=== PATIENT | female | born 1930 | race Hispanic/Latino ===

== ENCOUNTER 2018-04-13 21:20 | Emergency (ER) | payer MEDICARE, BC ==
[2018-04-13 21:52] VITALS: TEMP 98.3; O2SAT 95
[2018-04-13] MEDS ORDERED: Bacitracin 500 Units/gm Oint Foilpak UD TOP ONE (22:19)
[2018-04-13] MEDS ORDERED: Epinephrine /Lidocaine HCL 1:100,000/2% 30 ml INJ STA (22:19)
[2018-04-13] MEDS ORDERED: Bacitracin 500 Units/gm Oint Foilpak UD ONE (22:36)
[2018-04-14] MEDS ORDERED: Tdap Vaccine 0.5 ml Vial (10-64 yrs) IM ONE ×2 (00:05→00:09)
--- NOTE | 2018-04-14 00:22 | C.PDOC ---
History Of Present Illness 87 year old female presents to the ED c/o left foot pain and laceration. Patient states that while holding a glass picture from it slipped from her hands and fell onto her left foot which occurred approximately at 15:00. Patient states her foot continued bleeding which concerned her and prompted the visit to the ED. Patient denies numbness, weakness, other injuries. Time Seen by Provider: 04/13/18 22:06 Chief Complaint (Nursing): Abnormal Skin Integrity History Per: Patient History/Exam Limitations: no limitations Onset/Duration Of Symptoms: Hrs Current Symptoms Are (Timing): Still Present Location Of Injury: Left: Leg (foot) Quality Of Symptoms: Painful Recent travel outside of the [place]: No Additional History Per: Patient Past Medical History Reviewed: Historical Data, Nursing Documentation, Vital Signs Vital Signs: Last Vital Signs Temp 98.3 F 04/13/18 21:45 Pulse 89 04/14/18 00:22 Resp 20 04/14/18 00:22 BP 136/80 04/14/18 00:22 Pulse Ox 95 04/14/18 04:17 - Medical History PMH: Anxiety, Atrial Fibrillation, Cardia Arrhythmia, COPD, Depression, HTN, Hypothyroidism Denies: Chronic Kidney Disease Surgical History: Cholecystectomy (1984) - [facility] Procedures CLOSED ENDOSCOPIC BIOPSY OF LARGE INTESTINE (08/22/97) ENDOSCOP DEST OF OTH LESION OR TISU OF LRG INTESTN (08/22/97) ESOPHAGOGASTRODUODENOSCOPY [EGD] W/CLOSED BIOPSY (07/26/98) Family History: States: Unknown Family Hx - Social History Hx Tobacco Use: No Hx Alcohol Use: No Hx Substance Use: No - Immunization History Hx Tetanus Toxoid Vaccination: No Hx Influenza Vaccination: Yes Hx Pneumococcal Vaccination: Yes Review Of Systems Constitutional: Negative for: Fever, Chills Cardiovascular: Negative for: Chest Pain, Palpitations Respiratory: Negative for: Cough, Shortness of Breath Gastrointestinal: Negative for: Nausea, Vomiting, Abdominal Pain Musculoskeletal: Positive for: Foot Pain Skin: Positive for: Other (laceration) Neurological: Negative for: Weakness, Numbness Physical Exam - Physical Exam Appears: Non-toxic, No Acute Distress Skin: Normal Color, Warm, Dry, Other (2.5 cm C shaped laceration to dorsal aspect of left foot) Head: Atraumatic, Normacephalic Eye(s): bilateral: Normal Inspection Oral Mucosa: Moist Neck: Normal ROM, Supple Chest: Symmetrical Cardiovascular: Rhythm Regular Respiratory: Normal Breath Sounds, No Rales, No Rhonchi, No Wheezing Gastrointestinal/Abdominal: Soft, No Tenderness, No Guarding, No Rebound Extremity: Normal ROM, No Tenderness, Capillary Refill (< 2 seconds), No Swelling Pulses: Left Dorsalis Pedis: Normal, Right Dorsalis Pedis: Normal Neurological/Psych: Oriented x3, Normal Speech, Normal Motor, Normal Sensation Gait: Steady ED Course And Treatment O2 Sat by Pulse Oximetry: 95 (ON RA) Pulse Ox Interpretation: Normal Procedure: Wound Repair - Time Performed Time Performed: 00:00 - Time Out Time Out: Side verified, Site verified - Procedure Procedure: Wound Repair: Dorsal left foot - Consent Obtained Consent obtained: Verbal - Performed by Performed by: Mid-level Provider (Patt) - Indications Indication(s):: Laceration - Anesthetic Technique Anesthetic Technique: Local Local/Regional Anesthetic:: Lidocaine 1% w/epi - Debris Debris:: None - Complexity Complexity:: Simple (one layer) - Wound repair method Sutures:: # (Five), Size (4-0), Type (Nylon), Technique (interrupted) - Patient tolerated procedure Patient Tolerated Procedure:: Well Medical Decision Making Medical Decision Making: Plan: * Lac repair * Tetanus immunization * Left foot X-Ray Xrays are negative for fracture and no foreign body seen. Disposition - Disposition Referrals: [facility] [Outside] Disposition: HOME/ ROUTINE Disposition Time: 00:22 Condition: GOOD Additional Instructions: Follow up with the medical doctor within 1-2 days. Return if worsened, Prescriptions: Bacitracin Ointment [Bacitracin] 30 gm TOP BID #1 tube Instructions: Laceration Repair Forms: 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 - Scribe Statement The provider has reviewed the documentation as recorded by the Scribe Deni Mendoza All medical record entries made by the Scribe were at my direction and personally dictated by me. I have reviewed the chart and agree that the record accurately reflects my personal performance of the history, physical exam, medical decision making, and the department course for this patient. I have also personally directed, reviewed, and agree with the discharge instructions and disposition.
[2018-04-14 00:25] VITALS: BP 136/80; PULSE 89; RESP 20
--- NOTE | 2018-04-14 08:26 | RAD ---
Date of service: 04/13/2018 PROCEDURE: Left Foot Radiographs. HISTORY: foot injury, lac to dorsal mid foot, r/o FB COMPARISON: None. FINDINGS: BONES: No osseous destruction. Or periosteal reaction. . No fracture. Prominent inferior calcaneal spur JOINTS: 1st metatarsal joint space narrowing -osteoarthrosis SOFT TISSUES: There is compatible with a laceration. Overlying bandaging material present. No suspect radiopaque foreign body separate from the bandaging material appreciated. OTHER FINDINGS: None. IMPRESSION: No fracture periosteal reaction or cortical interruption. Soft tissue changes compatible with laceration overlying bandaging border the 5th metatarsal phalangeal joint. Arthrosis
== END 2018-04-14 00:30 | disposition home or self-care (01) ==
LOC: C.ER 21:20
DX: S91.312A Laceration without foreign body, left foot, initial encounter (principal); W25.XXXA Contact with sharp glass, initial encounter; Y92.89 Other specified places as the place of occurrence of the external cause; Z23 Encounter for immunization

== ENCOUNTER 2018-04-22 19:41 | Emergency (ER) | payer MEDICARE, BC ==
[2018-04-22 20:10] VITALS: BP 123/69; PULSE 84; RESP 18; TEMP 98.1; O2SAT 95
[2018-04-22] MEDS ORDERED: Tmp-Smz 800 mg-160 mg DS Tab PO STA (20:27)
[2018-04-22] MEDS ORDERED: Bacitracin 500 Units/gm Oint Foilpak UD TOP ONE (20:28)
[2018-04-22] MEDS ORDERED: Tmp-Smz 800 mg-160 mg DS Tab ONE (20:39)
[2018-04-22] MEDS ORDERED: Bacitracin 500 Units/gm Oint Foilpak UD ONE (20:39)
--- NOTE | 2018-04-22 20:40 | C.PDOC ---
History Of Present Illness 23 year old male patient presents to the ER with request for wound check and suture removal. Patient reports suture was placed 10 days ago on left dorsal foot and the area has become swollen and red. Patient denies fever, drainage, new trauma, numbness and weakness. Time Seen by Provider: 04/22/18 20:08 Chief Complaint (Nursing): Suture/Staple Removal History Per: Patient History/Exam Limitations: no limitations Onset/Duration Of Symptoms: Days Ago (x10) Location Of Injury: Left: Foot (dorsal) Quality Of Symptoms: Swollen, Other (erythema) Past Medical History Reviewed: Historical Data, Nursing Documentation, Vital Signs Vital Signs: Last Vital Signs Temp 98.1 F 04/22/18 20:08 Pulse 84 04/22/18 20:08 Resp 18 04/22/18 21:01 BP 123/69 04/22/18 20:08 Pulse Ox 95 04/22/18 21:20 - Medical History PMH: Anxiety, Atrial Fibrillation, Cardia Arrhythmia, COPD, Depression, HTN, Hypothyroidism Surgical History: Cholecystectomy (1984) - [facility] Procedures CLOSED ENDOSCOPIC BIOPSY OF LARGE INTESTINE (08/22/97) ENDOSCOP DEST OF OTH LESION OR TISU OF LRG INTESTN (08/22/97) ESOPHAGOGASTRODUODENOSCOPY [EGD] W/CLOSED BIOPSY (07/26/98) Family History: States: Unknown Family Hx - Social History Hx Tobacco Use: No Hx Alcohol Use: No Hx Substance Use: No - Immunization History Hx Tetanus Toxoid Vaccination: No Hx Influenza Vaccination: Yes Hx Pneumococcal Vaccination: Yes Review Of Systems Except As Marked, All Systems Reviewed And Found Negative. Constitutional: Negative for: Fever, Other (drainage; new trauma) Musculoskeletal: Positive for: Foot Pain (swollen and erythema of left dorsal aspect of foot) Neurological: Negative for: Weakness, Numbness Physical Exam - Physical Exam Appears: Well, Non-toxic, No Acute Distress Skin: Warm, Dry Head: Atraumatic, Normacephalic Eye(s): bilateral: Normal Inspection Oral Mucosa: Moist Neck: Normal ROM Extremity: Normal ROM, No Tenderness, No Pedal Edema, Capillary Refill (<2 sec) , No Deformity, Swelling (swelling and surrounding erythema on dorsal aspect of left foot) Pulses: Left Dorsalis Pedis: Normal, Right Dorsalis Pedis: Normal Neurological/Psych: Oriented x3, Normal Speech, Normal Motor, Normal Sensation, Normal Reflexes Gait: Steady ED Course And Treatment O2 Sat by Pulse Oximetry: 95 (RA) Pulse Ox Interpretation: Normal Progress Note: Impression: suture removal and wound check on dorsal aspect of left foot. Plans: -- Bacitracin. -- Bactrim. -- Keflex. Reassess: Dorsal aspect of left foot is poorly healed. Patient is tolerating PO; resting comfortably. Patient is instructed to f/u with PCP in 1-2 days and to come back if condition worsen. Medical Decision Making Medical Decision Making: Patient's skin is very thin and not healing well. Sutures were removed by me. Sterile dressing applied. The wound was traced with a skin marker to check for worsening Disposition - Disposition Referrals: Shantell Cancino MD [Staff Provider] - Disposition: HOME/ ROUTINE Disposition Time: 20:36 Condition: STABLE Additional Instructions: Follow up with the medical doctor within 1-2 days for wound check without fail. Return to the ED as soon as possible if worsened (increased redness, pain, or worsened swelling). 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 - Scribe Statement The provider has reviewed the documentation as recorded by the Mehrdadibsolo Philippe Do All medical record entries made by the Scribe were at my direction and personally dictated by me. I have reviewed the chart and agree that the record accurately reflects my personal performance of the history, physical exam, medical decision making, and the department course for this patient. I have also personally directed, reviewed, and agree with the discharge instructions and disposition. Suture Removal/Wound Check - Historian Historian: Patient - Chief Complaints Chief complaint: Suture removal, Wound check - Treated at Treated at:: Other ED ([facility] ED) Antibiotics prescribed:: Yes (Bactrim) - Symptoms since last ED visit Symptoms since last ED visit:: Redness Other:: swollen - Location Right/Left:: Foot (dorsal aspect of left foot)
== END 2018-04-22 21:02 | disposition home or self-care (01) ==
LOC: C.ER 19:41
DX: Z48.02 Encounter for removal of sutures (principal); L03.116 Cellulitis of left lower limb

== ENCOUNTER 2018-11-11 15:06 | Inpatient (IN) | payer MEDICARE, BC ==
[2018-11-11] MEDS ORDERED: Vancomycin 1 GM 1 GM/250 ML BAG IVPB STA (15:35)
[2018-11-11] MEDS ORDERED: Piperacillin/Tazobact 3.375 gm 100 ML IV STA (15:35)
[2018-11-11] MEDS ORDERED: Vancomycin 1 GM 1 GM/250 ML BAG IVPB ONE (15:55)
[2018-11-11] MEDS ORDERED: Piperacillin/Tazobact 3.375 gm 100 ML IVPB ONE (15:55)
--- NOTE | 2018-11-11 16:03 | C.PDOC ---
History Of Present Illness 87 y/o female pt presents to the ER c/o right lower leg wound and swelling. Pt reports she accidentally kicked a metal box x1 week ago. Pt washed wound with soap and water but site became worse. Pt lives alone and is present with guru valderrama. Pt has no other complaint or other associated sx at this time. Time Seen by Provider: 11/11/18 15:21 Chief Complaint (Nursing): Shortness Of Breath History Per: Patient History/Exam Limitations: no limitations Onset/Duration Of Symptoms: Days Current Symptoms Are (Timing): Still Present Past Medical History Reviewed: Historical Data, Nursing Documentation, Vital Signs Vital Signs: Last Vital Signs Temp 97.7 F 11/11/18 15:12 Pulse 77 11/11/18 15:12 Resp 20 11/11/18 15:12 BP 155/83 H 11/11/18 15:12 Pulse Ox 92 L 11/11/18 15:12 - Medical History PMH: Anxiety, Atrial Fibrillation, Cardia Arrhythmia, COPD, Depression, HTN, Hypothyroidism Surgical History: Cholecystectomy (1984) - [facility] Procedures CLOSED ENDOSCOPIC BIOPSY OF LARGE INTESTINE (08/22/97) ENDOSCOP DEST OF OTH LESION OR TISU OF LRG INTESTN (08/22/97) ESOPHAGOGASTRODUODENOSCOPY [EGD] W/CLOSED BIOPSY (07/26/98) Family History: States: Unknown Family Hx - Social History Hx Tobacco Use: No Hx Alcohol Use: No Hx Substance Use: No - Immunization History Hx Tetanus Toxoid Vaccination: No Hx Influenza Vaccination: Yes Hx Pneumococcal Vaccination: Yes Review Of Systems Except As Marked, All Systems Reviewed And Found Negative. Musculoskeletal: Positive for: Leg Pain (right lower ) Skin: Positive for: Other (wound on right lower leg ) Physical Exam - Physical Exam Appears: Non-toxic, No Acute Distress, Other (elderly ) Skin: Warm, Dry, No Rash Head: Atraumatic, Normacephalic Eye(s): bilateral: Normal Inspection Oral Mucosa: Moist Throat: Normal Chest: Symmetrical Cardiovascular: Rhythm Irregular Respiratory: Other (distant but clear ) Gastrointestinal/Abdominal: Soft, No Tenderness Extremity: Normal ROM (x4), Pedal Edema (R>L), No Calf Tenderness, No Deformity, Other (2 skin tear in anterior mid-tibia; approximately 2 cm each; 10x20 surrounding area erythema consistent with cellulitis; Right leg: negative homans sign. ) Pulses: Left Dorsalis Pedis: Normal Neurological/Psych: Oriented x3, Normal Speech, Normal Cognition, Normal Motor, Normal Sensation ED Course And Treatment - Laboratory Results Result Diagrams: 11/11/18 16:00 11/11/18 16:00 Lab Interpretation: Normal (d-dimer neg, trop neg,) ECG: Interpreted By Me ECG Rhythm: Atrial Fibrillation ECG Interpretation: Normal Rate From EC O2 Sat by Pulse Oximetry: 92 (RA) Pulse Ox Interpretation: Normal - Radiology CXR: Interpreted by Me CXR Interpretation: Yes: No Acute Disease. No: Infiltrates - CT Scan/US U/S legs Other Rad Studies (CT/US): Radiology Report Reviewed (no b/l leg DVT's) Progress Note: vanco, zosyn, Xanax Reevaluation Time: 17:52 Reassessment Condition: Improved - Physician Consult Information Outcome Of Conversation: 1750: d/w Hospitalist- Dr. Remedios Calhoun, ok to adm to Dr. Belle covering pt's for Dr. Cancino Medical Decision Making Medical Decision Making: plans: -- chem labs -- blood work -- EKG -- CXR -- IV fluids -- vancomycin -- xanax R lower leg cellulitis skin tear from 1 week ago zosyn/Vanco COPD Stable normal regimen consult Dr. Ortiz PRN Anxiety: Xanax [place] deconditioned lives alone [facility] after hospital care consider NH placement for safe dispo Disposition Doctor Will See Patient In The: Hospital Counseled Patient/Family Regarding: Studies Performed, Diagnosis - Disposition Disposition: HOSPITALIZED Disposition Time: 17:54 Condition: GOOD Forms: [employer] (Icelandic) - Clinical Impression Clinical Impression: Cellulitis of leg, right - Scribe Statement The provider has reviewed the documentation as recorded by the Diana Philippe Do Provider Attestation: All medical record entries made by the Diana were at my direction and personally dictated by me. I have reviewed the chart and agree that the record accurately reflects my personal performance of the history, physical exam, medical decision making, and the department course for this patient. I have also personally directed, reviewed, and agree with the discharge instructions and disposition.
[2018-11-11 16:11] LABS: BASO # 0.1 K/uL (0.0-0.2); BASO % 1.4 % (0.0-2.0); EOS # 0.2 K/uL (0.0-0.7); EOS % 3.4 % (0.0-4.0); LYMPH # 1.8 K/uL (1.0-4.3); LYMPH % 27.6 % (20.0-40.0); MEAN CELL VOLUME 86.2 fL (81.0-99.0); MEAN CORPUSCULAR HEMOGLOBIN 28.1 pg (27.0-31.0); MEAN CORPUSCULAR HGB CONC 32.6 g/dL (33.0-37.0); MEAN PLATELET VOLUME 8.7 fL (7.2-11.7); MONO # 0.8 K/uL (0.0-0.8); MONO % 12.9 % (0.0-10.0); NEUT # 3.5 K/uL (1.8-7.0); NEUT % 54.7 % (50.0-75.0); RBC 4.64 Mil/uL (3.80-5.20); RED CELL DISTRIBUTION WIDTH 14.4 % (11.5-14.5); WHITE BLOOD COUNT 6.4 K/uL (4.8-10.8)
--- NOTE | 2018-11-11 16:11 | RAD ---
Date of service: 11/11/2018 PROCEDURE: CHEST RADIOGRAPH, 1 VIEW HISTORY: SOB COMPARISON: CT chest without contrast from 02/02/2017. FINDINGS: LUNGS: The lungs are well inflated. There is mild pulmonary venous congestion. PLEURA: No pneumothorax or pleural effusion. CARDIOVASCULAR: Persistent cardiomegaly and prominent central vasculature. There are aortic atherosclerotic calcifications present. OSSEOUS STRUCTURES: Within normal limits for the patient's age. VISUALIZED UPPER ABDOMEN: Normal. OTHER FINDINGS: None. IMPRESSION: No active pulmonary disease. Persistent cardiomegaly and mild pulmonary venous congestion.
[2018-11-11 16:16] LABS: ALB/GLOB RATIO 1.3 (1.0-2.1); ALBUMIN 4.1 g/dL (3.5-5.0); ALT/SGPT 27 U/L (9-52); AST/SGOT 32 U/L (14-36); BLOOD UREA NITROGEN 26 mg/dL (7-17); CALCIUM 9.2 mg/dl (8.6-10.4); GFR NON-AFRICAN AMERICAN > 60
[2018-11-11 16:21] LABS: INR 1.3; PARTIAL THROMBOPLASTIN TIME 72 SECONDS (21-34)
[2018-11-11 16:25] LABS: D DIMER < 200 ng/mlDDU (0-243)
[2018-11-11 16:29] LABS: B-TYPE NATRIURETIC PEPTIDE 1880 pg/mL (0-900)
--- NOTE | 2018-11-11 17:12 | VASCLAB ---
Date of service: 11/11/2018 PROCEDURE: Lower Extremity Venous Duplex Exam. HISTORY: ? R lower leg DVT PRIORS: None. TECHNIQUE: Bilateral common femoral, femoral, popliteal and posterior tibial, peroneal and great saphenous veins were evaluated. Flow was assessed with color Doppler, compressibility, assessment of phasic flow and augmentation response. Report prepared by Kenneth Self, BS, RVT FINDINGS: RIGHT: 1. Common Femoral Vein: 1.1. Compressibility - Fully compressible: Thrombus - None : Flow - Phasic: Augmentation -Normal: Reflux - None. 2. Femoral Vein: 2.1. Compressibility - Fully compressible: Thrombus - None : Flow - Phasic: Augmentation -Normal: Reflux - None. 3. Popliteal Vein: 3.1. Compressibility - Fully compressible: Thrombus - None : Flow - Phasic: Augmentation -Normal: Reflux - None. 4. Posterior Tibial Vein: 4.1. Compressibility - Fully compressible: Thrombus - None: Flow - Phasic: Augmentation -Normal: Reflux - None. 5. Peroneal Vein: 5.1. Compressibility - Fully compressible: Thrombus - None: Flow - Phasic: Augmentation -Normal: Reflux - None. 6. Great Saphenous Vein: 6.1. Compressibility - Fully compressible: Thrombus - None: Flow - Phasic: Augmentation - Normal: Reflux - None. LEFT: 1. Common Femoral Vein: 1.1. Compressibility - Fully compressible: Thrombus - None: Flow - Phasic: Augmentation -Normal: Reflux - None. 2. Femoral Vein: 2.1. Compressibility - Fully compressible: Thrombus - None: Flow - Phasic: Augmentation -Normal: Reflux - None. 3. Popliteal Vein: 3.1. Compressibility - Fully compressible: Thrombus - None : Flow - Phasic: Augmentation -Normal: Reflux - None. 4. Posterior Tibial Vein: 4.1. Compressibility - Fully compressible: Thrombus - None: Flow - Phasic: Augmentation -Normal: Reflux - None. 5. Peroneal Vein: 5.1. Compressibility - Fully compressible: Thrombus - None: Flow - Phasic: Augmentation -Normal: Reflux - None. 6. Great Saphenous Vein: 6.1. Compressibility - Fully compressible: Thrombus - None: Flow - Phasic: Augmentation - Normal: Reflux - None. OTHER FINDINGS: Right: None significant. Left: None significant. IMPRESSION: Right: No evidence of deep or superficial vein thrombosis of the right lower extremity. Normal valve function noted of the right side. Left: No evidence of deep or superficial vein thrombosis of the left lower extremity. Normal valve function noted of the left side.
[2018-11-11 17:15] LABS: SQUAMOUS EPITHIAL 1 /hpf (0-5); URINE BACTERIA RARE (<OCC); URINE BILIRUBIN NEGATIVE (NEGATIVE); URINE BLOOD NEGATIVE (NEGATIVE); URINE COLOR Yellow (YELLOW); URINE GLUCOSE (UA) NORMAL (Normal); URINE LEUKOCYTE ESTERASE 2+ Leu/uL (Negative); URINE PROTEIN NEGATIVE (NEGATIVE); URINE UROBILINOGEN NORMAL mg/dL (0.2-1.0)
[2018-11-11 17:16] LABS: URINE CLARITY SL HAZY (Clear)
[2018-11-11 18:08] VITALS: RESP 20
--- NOTE | 2018-11-11 19:28 | CP.PCM.HP ---
<ElianaCristopher - Last Filed: 11/11/18 22:20> History of Present Illness - History of Present Illness History of Present Illness: PGY-1 History and Physical [address] Belle Patient is an 87 year old female with past medical history of Atrial fibrillation (on Pradaxa), HTN, COPD, gastritis, anxiety/depression presenting to ED for RLE wound/cellulitis after hitting the anterior portion of her lower R leg on the edge of a metallic filing cabinet 1 week ago. Patient denies any falls or head trauma. She tried cleaning out the wound with soap and water at home, put some bacitracin ointment on it but says it worsened over the course of 1 week. She denies any fevers/chills, headaches, dizziness, chest pain, palpitations, sob, cough, abdominal pain, n/v/d/c, dysuria. 12 pt ROS reviewed and otherwise negative. Of note, patient was on home O2 but says it was taken away last week b/c of insurance. PMHx: A-fib, HTN, COPD, gastritis, anxiety, depression PSHx: cholecystectomy (1984) Allergies: NKDA Home Meds: as per chart Family Hx: unknown Social Hx: denies tobacco, alcohol, or illicit drug use. Lives at home alone. Was brought in by daughter to ED. Used home O2 in past but recently taken away d/t insurance, per pt. PMD: Dr. Medina Present on Admission - Present on Admission Any Indicators Present on Admission: No Review of Systems - Review of Systems All systems: reviewed and no additional remarkable complaints except Review of Systems: as per HPI Past Patient History - Past Medical History & Family History Past Medical History?: Yes - Past Social History Smoking Status: Former Smoker - CARDIAC Hx Atrial Fibrillation: Yes Hx Cardia Arrhythmia: Yes Hx Hypertension: Yes - PULMONARY Hx Chronic Obstructive Pulmonary Disease (COPD): Yes - NEUROLOGICAL Hx Neurological Disorder: No - HEENT Hx HEENT Problems: No - RENAL Hx Chronic Kidney Disease: No - ENDOCRINE/METABOLIC Hx Hypothyroidism: Yes - HEMATOLOGICAL/ONCOLOGICAL Hx Blood Disorders: No - INTEGUMENTARY Hx Dermatological Problems: No - MUSCULOSKELETAL/RHEUMATOLOGICAL Hx Musculoskeletal Disorders: No Hx Falls: No - GASTROINTESTINAL Hx Gastrointestinal Disorders: Yes Hx Gastroesophageal Reflux: Yes - GENITOURINARY/GYNECOLOGICAL Hx Genitourinary Disorders: Yes Hx Urinary Tract Infection: Yes - PSYCHIATRIC Hx Anxiety: Yes Hx Depression: Yes Hx Substance Use: No - SURGICAL HISTORY Hx Cholecystectomy: Yes (1984) - ANESTHESIA Hx Anesthesia: Yes Hx Anesthesia Reactions: No Hx Malignant Hyperthermia: No Meds Allergies/Adverse Reactions: Allergies Allergy/AdvReac Type Severity Reaction Status Date / Time No Known Allergies Allergy Verified 11/11/18 15:17 Physical Exam - Constitutional Appears: Non-toxic, No Acute Distress - Head Exam Head Exam: ATRAUMATIC, NORMAL INSPECTION, NORMOCEPHALIC - Eye Exam Eye Exam: EOMI, Normal appearance Pupil Exam: NORMAL ACCOMODATION - ENT Exam ENT Exam: Mucous Membranes Moist, Normal Exam - Neck Exam Neck exam: Positive for: Full Rom, Normal Inspection. Negative for: Tenderness - Respiratory Exam Respiratory Exam: Clear to Auscultation Bilateral, NORMAL BREATHING PATTERN. absent: Accessory Muscle Use, Rales, Rhonchi, Wheezes, Respiratory Distress, Stridor - Cardiovascular Exam Cardiovascular Exam: Irregular Rhythm, +S1, +S2 - GI/Abdominal Exam GI & Abdominal Exam: Normal Bowel Sounds, Soft. absent: Distended, Firm, Guarding, Rebound, Rigid, Tenderness - Extremities Exam Extremities exam: Positive for: joint swelling (R), normal capillary refill, normal inspection, pedal edema (R>L), pedal pulses present. Negative for: calf tenderness Additional comments: b/l LE distal pulses intact, normal coloration no sensory or motor deficits to LE noted - Neurological Exam Neurological exam: Alert, CN II-XII Intact, Oriented x3 - Psychiatric Exam Psychiatric exam: Normal Affect, Normal Mood - Skin Skin Exam: Dry, Warm Additional comments: 2 skin tears 1-2 cm in size with overlying necrosis to R anterior mid-tibia. 10x20 demarcated surrounding warmth, erythema, TTP. Results - Vital Signs Recent Vital Signs: Last Vital Signs Temp 97.7 F 11/11/18 15:12 Pulse 71 11/11/18 18:08 Resp 20 11/11/18 18:08 BP 127/89 11/11/18 18:08 Pulse Ox 96 11/11/18 18:08 - Labs Result Diagrams: 11/11/18 16:00 11/11/18 16:00 Labs: Laboratory Results - last 24 hr 11/11/18 11/11/18 11/11/18 16:00 16:00 16:00 WBC 6.4 RBC 4.64 Hgb 13.0 Hct 40.0 MCV 86.2 MCH 28.1 MCHC 32.6 L RDW 14.4 Plt Count 194 MPV 8.7 Neut % (Auto) 54.7 Lymph % (Auto) 27.6 Finney % (Auto) 12.9 H Eos % (Auto) 3.4 Baso % (Auto) 1.4 Neut # (Auto) 3.5 Lymph # (Auto) 1.8 Finney # (Auto) 0.8 Eos # (Auto) 0.2 Baso # (Auto) 0.1 PT 14.0 H INR 1.3 APTT 72 H D-Dimer, Quantitative < 200 Sodium 136 Potassium 4.7 Chloride 100 Carbon Dioxide 28 Anion Gap 13 BUN 26 H Creatinine 0.8 Est GFR ( Amer) > 60 Est GFR (Non-Af Amer) > 60 Random Glucose 91 Calcium 9.2 Total Bilirubin 0.6 AST 32 ALT 27 Alkaline Phosphatase 80 Troponin I < 0.0120 NT-Pro-B Natriuret Pep 1880 H Total Protein 7.1 Albumin 4.1 Globulin 3.0 Albumin/Globulin Ratio 1.3 Urine Color Urine Clarity Urine pH Ur Specific [place] Urine Protein Urine Glucose (UA) Urine Ketones Urine Blood Urine Nitrate Urine Bilirubin Urine Urobilinogen Ur Leukocyte Esterase Urine WBC (Auto) Urine RBC (Auto) Ur Squamous Epith Cells Urine Bacteria 11/11/18 17:00 WBC RBC Hgb Hct MCV MCH MCHC RDW Plt Count MPV Neut % (Auto) Lymph % (Auto) [place] % (Auto) Eos % (Auto) Baso % (Auto) Neut # (Auto) Lymph # (Auto) [place] # (Auto) Eos # (Auto) Baso # (Auto) PT INR APTT D-Dimer, Quantitative Sodium Potassium Chloride Carbon Dioxide Anion Gap BUN Creatinine Est GFR ( Amer) Est GFR (Non-Af Amer) Random Glucose Calcium Total Bilirubin AST ALT Alkaline Phosphatase Troponin I NT-Pro-B Natriuret Pep Total Protein Albumin Globulin Albumin/Globulin Ratio Urine Color Yellow Urine Clarity Sl hazy Urine pH 5.0 Ur Specific [place] 1.014 Urine Protein Negative Urine Glucose (UA) Normal Urine Ketones Negative Urine Blood Negative Urine Nitrate Negative Urine Bilirubin Negative Urine Urobilinogen Normal Ur Leukocyte Esterase 2+ H Urine WBC (Auto) 18 H Urine RBC (Auto) 2 Ur Squamous Epith Cells 1 Urine Bacteria Rare Assessment & Plan - Assessment and Plan (Free Text) Assessment: 87 year old F with pmhx of afib (on pradaxa), HTN, COPD, anxiety, depression presenting with RLE wound, likely cellulitis, 2/2 trauma 1 week ago. Plan: RLE swelling/inflammation 2/2 hematoma vs cellulitis -s/p vanc/zosyn x 1 in ED -patient is afebrile, no leukocytosis -add rocephin/doxycycline -f/u Blood, urine cultures -LE Dopplers negative for DVT -D dimer negative -CXR: no acute findings -f/u tib/fib XR -f/u CT RLE w/o contrast to visualize any fluid collection -f/u repeat ECHO (last echo 2015, normal EF at that time) Atrial fibrillation -EKG: a fib, HR 66 bpm -c/w home pradaxa 75 mg PO BID Hx of HTN -currently normotensive, continue to monitor -c/w home losartan 100 mg PO daily Hx of hypothyroidism -restart home synthroid 25 mcg po daily Anxiety, Depression -c/w home xanax 0.25 mg PO BID prn PPx, Diet, Disposition -DVT ppx: home pradaxa -GI ppx: protonix 40 mg IV daily -Diet: HHD -PT/OT on board -Dispo: will need support set up at home, possible home O2. F/U case mgmt for safe discharge. Case discussed with Dr. Yoshi Monroy DO, PGY-1 <Caleb Belle P - Last Filed: 11/12/18 07:03> Results - Vital Signs Recent Vital Signs: Last Vital Signs Temp 98.2 F 11/12/18 00:00 Pulse 60 11/12/18 00:00 Resp 20 11/12/18 00:00 BP 149/73 11/12/18 00:00 Pulse Ox 96 11/12/18 00:00 - Labs Result Diagrams: 11/11/18 16:00 11/11/18 16:00 Labs: Laboratory Results - last 24 hr 11/11/18 11/11/18 11/11/18 16:00 16:00 16:00 WBC 6.4 RBC 4.64 Hgb 13.0 Hct 40.0 MCV 86.2 MCH 28.1 MCHC 32.6 L RDW 14.4 Plt Count 194 MPV 8.7 Neut % (Auto) 54.7 Lymph % (Auto) 27.6 [place] % (Auto) 12.9 H Eos % (Auto) 3.4 Baso % (Auto) 1.4 Neut # (Auto) 3.5 Lymph # (Auto) 1.8 [place] # (Auto) 0.8 Eos # (Auto) 0.2 Baso # (Auto) 0.1 PT 14.0 H INR 1.3 APTT 72 H D-Dimer, Quantitative < 200 Sodium 136 Potassium 4.7 Chloride 100 Carbon Dioxide 28 Anion Gap 13 BUN 26 H Creatinine 0.8 Est GFR ( Amer) > 60 Est GFR (Non-Af Amer) > 60 POC Glucose (mg/dL) Random Glucose 91 Calcium 9.2 Total Bilirubin 0.6 AST 32 ALT 27 Alkaline Phosphatase 80 Troponin I < 0.0120 NT-Pro-B Natriuret Pep 1880 H Total Protein 7.1 Albumin 4.1 Globulin 3.0 Albumin/Globulin Ratio 1.3 Urine Color Urine Clarity Urine pH Ur Specific [place] Urine Protein Urine Glucose (UA) Urine Ketones Urine Blood Urine Nitrate Urine Bilirubin Urine Urobilinogen Ur Leukocyte Esterase Urine WBC (Auto) Urine RBC (Auto) Ur Squamous Epith Cells Urine Bacteria 11/11/18 11/12/18 17:00 02:08 WBC RBC Hgb Hct MCV MCH MCHC RDW Plt Count MPV Neut % (Auto) Lymph % (Auto) [place] % (Auto) Eos % (Auto) Baso % (Auto) Neut # (Auto) Lymph # (Auto) [place] # (Auto) Eos # (Auto) Baso # (Auto) PT INR APTT D-Dimer, Quantitative Sodium Potassium Chloride Carbon Dioxide Anion Gap BUN Creatinine Est GFR ( Amer) Est GFR (Non-Af Amer) POC Glucose (mg/dL) 87 Random Glucose Calcium Total Bilirubin AST ALT Alkaline Phosphatase Troponin I NT-Pro-B Natriuret Pep Total Protein Albumin Globulin Albumin/Globulin Ratio Urine Color Yellow Urine Clarity Sl hazy Urine pH 5.0 Ur Specific [place] 1.014 Urine Protein Negative Urine Glucose (UA) Normal Urine Ketones Negative Urine Blood Negative Urine Nitrate Negative Urine Bilirubin Negative Urine Urobilinogen Normal Ur Leukocyte Esterase 2+ H Urine WBC (Auto) 18 H Urine RBC (Auto) 2 Ur Squamous Epith Cells 1 Urine Bacteria Rare Attending/Attestation - Attestation I have personally seen and examined this patient.: Yes I have fully participated in the care of the patient.: Yes I have reviewed all pertinent clinical information: Yes Notes (Text): 11/12/18 06:59 Cellulitis vs hematoma in the RLL some fluctuation felt Chronic SOB had home o2 uptil wk ago, patient can't use sleep apnea mask and may benefit with night time O2 will need home help, due to deconditioning, chronic sob, sleep apnea, patient is otherwise alert and oriented. Plan rocephin and doxycycline ct of the leg echo Continue pradaxa for afib, also will provide dvt protection gi prophylaxis see orders for detail.
[2018-11-11] MEDS ORDERED: Piperacill/Tazo 3.375gm in Dex 3.375 GM/50 ML BAG IVPB SCH (23:00)
[2018-11-12] MEDS: Levothyroxine 25 MCG TAB PO SCH (05:44)
[2018-11-12 07:07] LABS: BASO # 0.1 K/uL (0.0-0.2); BASO % 1.5 % (0.0-2.0); EOS # 0.3 K/uL (0.0-0.7); EOS % 6.1 % (0.0-4.0); HEMOGLOBIN 12.2 g/dL (11.0-16.0); LYMPH # 1.3 K/uL (1.0-4.3); LYMPH % 27.3 % (20.0-40.0); MEAN CORPUSCULAR HGB CONC 32.1 g/dL (33.0-37.0); MEAN PLATELET VOLUME 8.8 fL (7.2-11.7); MONO # 0.6 K/uL (0.0-0.8); MONO % 13.3 % (0.0-10.0); NEUT # 2.5 K/uL (1.8-7.0); NEUT % 51.8 % (50.0-75.0); RBC 4.36 Mil/uL (3.80-5.20); RED CELL DISTRIBUTION WIDTH 14.6 % (11.5-14.5); WHITE BLOOD COUNT 4.7 K/uL (4.8-10.8)
[2018-11-12 07:09] LABS: ALB/GLOB RATIO 1.3 (1.0-2.1); ALBUMIN 3.6 g/dL (3.5-5.0); ALT/SGPT 18 U/L (9-52); AST/SGOT 29 U/L (14-36); BLOOD UREA NITROGEN 22 mg/dL (7-17); CALCIUM 8.7 mg/dl (8.6-10.4); GFR NON-AFRICAN AMERICAN 59
--- NOTE | 2018-11-12 09:03 | CP.PCM.PN ---
<Isela Roland - Last Filed: 11/12/18 14:40> Subjective - Date & Time of Evaluation Date of Evaluation: 11/12/18 Time of Evaluation: 09:03 - Subjective Subjective: Progress Note for Hospitalist service Patient seen and examined at bedside. She states she has a history of COPD, and had home oxygen at home until about a week ago. She continues to feel short of breath with heaviness in her chest. She denies fevers, chills, headache, dizziness, palpitations, abdominal pain, nausea, vomiting, diarrhea. She states she injured her right leg against a medical object a week ago. She admits to some difficulty doing her laundry and grocery shopping. Objective - Vital Signs/Intake and Output Vital Signs (last 24 hours): Temp Pulse Resp BP Pulse Ox 97.9 F 76 20 143/72 95 11/12/18 07:56 11/12/18 07:56 11/12/18 07:56 11/12/18 07:56 11/12/18 07:56 - Medications Medications: Current Medications Acetaminophen (Tylenol 325mg Tab) 975 mg PO Q6 PRN PRN Reason: Fever >100.4 F Alprazolam (Xanax) 0.25 mg PO BID PRN PRN Reason: Anxiety Stop: 11/18/18 19:30 Dabigatran (Pradaxa) 75 mg PO BID [facility] Last Admin: 11/11/18 19:50 Dose: 75 mg Doxycycline Hyclate (Doryx) 100 mg PO Q12H [facility]; Protocol Last Admin: 11/11/18 22:30 Dose: 100 mg Ceftriaxone Sodium 1 gm/ (Sodium Chloride) 100 mls @ 100 mls/hr IVPB DAILY [facility]; Protocol Lactobacillus Acidophilus (Lactobacillus) 1 cap PO BID [facility] Levothyroxine Sodium (Synthroid) 25 mcg PO DAILY@0630 [facility] Last Admin: 11/12/18 05:44 Dose: 25 mcg Losartan Potassium (Cozaar) 100 mg PO DAILY [facility] Pantoprazole Sodium (Protonix Inj) 40 mg IVP DAILY [facility] - Labs Labs: 11/12/18 06:47 11/12/18 06:47 PT 14.0 SECONDS (9.7-12.2) H 11/11/18 16:00 INR 1.3 11/11/18 16:00 APTT 72 SECONDS (21-34) H 11/11/18 16:00 - Constitutional Appears: Other (Patient appears mildly short of breath, using oxygen via nasal cannula) - Head Exam Head Exam: ATRAUMATIC, NORMOCEPHALIC - Eye Exam Eye Exam: EOMI, PERRL - ENT Exam ENT Exam: Mucous Membranes Moist - Neck Exam Neck Exam: Full ROM - Respiratory Exam Respiratory Exam: Decreased Breath Sounds. absent: Rales, Rhonchi, Wheezes, Respiratory Distress, Stridor - Cardiovascular Exam Cardiovascular Exam: REGULAR RHYTHM, +S1, +S2. absent: Gallop, Rubs, Murmur - GI/Abdominal Exam GI & Abdominal Exam: Soft, Normal Bowel Sounds. absent: Distended, Firm, Gua rding, Rigid, Tenderness, Organomegaly - Extremities Exam Additional comments: Right lower extremity: demaracated erythema with warmth and tenderness with two 1-2 cm skin tears with dried blood. Bilateral lower extremity pulses intact. normal coloration. No motor or sensory deficits noted bilaterally. - Neurological Exam Neurological Exam: Alert, Awake, Oriented x3 - Psychiatric Exam Psychiatric exam: Normal Affect, Normal Mood - Skin Skin Exam: Dry, Warm Assessment and Plan - Assessment and Plan (Free Text) Assessment: 87 year old F with history of Atrial fibrillation (on pradaxa), HTN, COPD, anxiety, depression presenting with RLE wound, likely cellulitis, secondary to trauma 1 week ago. Plan: Right lower extremity edema likely hematoma vs. cellulitis -Received vanc/zosyn x 1 in ED -patient is afebrile, no leukocytosis -Continue Rocephin 1g IV (started 11/12) -Continue Doxycycline 100mg Q12 (started 11/12) -f/u Blood, urine cultures -LE Dopplers negative for DVT -D dimer negative -CXR: no acute findings -Right tib/fib XR negative -f/u CT RLE w/o contrast to visualize any fluid collection -f/u repeat ECHO (last echo 2015, normal EF at that time) History of COPD - Untreated at home - No home medications except for inhaler occasionally - Pulmonology Dr. Patel consulted, help appreciated - Duonebs Q4 - Katrina erwin Atrial fibrillation -EKG: a fib, HR 66 bpm -Continue home pradaxa 75 mg PO BID Hx of HTN -Currently normotensive, continue to monitor -Continue home losartan 100 mg PO daily Hx of hypothyroidism -Restart home synthroid 25 mcg po daily Anxiety, Depression -Continue home xanax 0.25 mg PO BID prn PPx, Diet, Disposition -DVT ppx: home pradaxa -GI ppx: protonix 40 mg IV daily -Diet: HHD -PT/OT on board -Dispo: will need support set up at home, possible home O2. Case management for safe discharge Case discussed with Dr. Genny Roland, PGY1 <Fernando Royal - Last Filed: 11/12/18 15:43> Objective - Vital Signs/Intake and Output Vital Signs (last 24 hours): Temp Pulse Resp BP Pulse Ox 97.9 F 76 20 143/72 95 11/12/18 07:56 11/12/18 07:56 11/12/18 07:56 11/12/18 07:56 11/12/18 07:56 Intake and Output: 11/12/18 11/12/18 06:59 18:59 Intake Total 124 Balance 124 - Medications Medications: Current Medications Acetaminophen (Tylenol 325mg Tab) 975 mg PO Q6 PRN PRN Reason: Fever >100.4 F Alprazolam (Xanax) 0.25 mg PO BID PRN PRN Reason: Anxiety Stop: 11/18/18 19:30 Dabigatran (Pradaxa) 75 mg PO BID [facility] Last Admin: 11/12/18 11:11 Dose: 75 mg Doxycycline Hyclate (Doryx) 100 mg PO Q12H [facility]; Protocol Last Admin: 11/12/18 11:11 Dose: 100 mg Fluticasone/Vilanterol (Breo Ellipta 100-25 Mcg Inh) 1 puff INH RQD [facility] Ceftriaxone Sodium 1 gm/ (Sodium Chloride) 100 mls @ 100 mls/hr IVPB DAILY [facility]; Protocol Last Admin: 11/12/18 11:12 Dose: 100 mls/hr Lactobacillus Acidophilus (Lactobacillus) 1 cap PO BID [facility] Last Admin: 11/12/18 11:12 Dose: 1 cap Levothyroxine Sodium (Synthroid) 25 mcg PO DAILY@0630 [facility] Last Admin: 11/12/18 05:44 Dose: 25 mcg Losartan Potassium (Cozaar) 100 mg PO DAILY [facility] Last Admin: 11/12/18 11:11 Dose: 100 mg Pantoprazole Sodium (Protonix Inj) 40 mg IVP DAILY [facility] Last Admin: 11/12/18 11:11 Dose: 40 mg Prednisone (Prednisone Tab) 20 mg PO DAILY [facility] Last Admin: 11/12/18 11:11 Dose: 20 mg - Labs Labs: 11/12/18 06:47 11/12/18 06:47 PT 14.0 SECONDS (9.7-12.2) H 11/11/18 16:00 INR 1.3 11/11/18 16:00 APTT 72 SECONDS (21-34) H 11/11/18 16:00 Attending/Attestation - Attestation I have personally seen and examined this patient.: Yes I have fully participated in the care of the patient.: Yes I have reviewed all pertinent clinical information, including history, physical exam and plan: Yes Notes (Text): 11/12/18 15:37 Medical attending : Patient was seen and examined by me, agree with the above note by the resident The patient was not in any acute distress at the time we saw her She was very talkative The Right leg lower extremity was outlined with a marker - and per patient she says it has improved dramatically. We will continues to the Rocephin and Doxycyclin for the time being Also the she feels better sleeping with the oxygen on. It was endorsed to me by the night time medical service that she lost her home O2 due to financial reasons. We will have to wait until Wednesday/Tuesdays for case workers/social and human services assistant evaluation The patient also only has albuterol for her COPD/Emphesema - will add on Breo/Ellipta for the time being as well as PO Prednisone to see if this brings her some relief With reguards to her ADLs, she says she cannot do her own laundry, struggles to cook. Family is trying to bring food and support her. Fernando Royal
--- NOTE | 2018-11-12 10:10 | RAD ---
Date of service: 11/12/2018 PROCEDURE: Radiographs of the right tibia and fibula. HISTORY: RLE trauma/swelling COMPARISON: None available TECHNIQUE: Frontal and lateral views obtained. FINDINGS: BONES: No fracture or destructive lesion. JOINT SPACES: Unremarkable. OTHER FINDINGS: None. IMPRESSION: Unremarkable radiographs of the right tibia and fibula.
[2018-11-12] MEDS: Lactobacillus Acidophilus 500 MU Cap PO SCH ×2 (11:12→17:24)
--- NOTE | 2018-11-12 17:19 | CT ---
Date of service: 11/12/2018 PROCEDURE: CT right lower extremity HISTORY: RLE swelling, ttp, erythema COMPARISON: Not available TECHNIQUE: 2.5 mm contiguous axial sections were acquired through the right tibia and fibula. Sagittal and coronal images were reformatted from the axial scan. Contrast administered: None Total exam DLP: 445.27 mGy-cm. This CT exam was performed using 1 or more of the following dose reduction techniques: Automated exposure control, adjustment of the mA and/or kV according to patient size, and/or use of iterative reconstruction technique. FINDINGS: There is no fracture. There is no osseous erosion or periosteal reaction appreciated. There is no abscess identified. There is mild skin thickening and stranding of the subcutaneous fat over the pretibial soft tissues, likely reflecting cellulitis. IMPRESSION: Probable cellulitis. No additional abnormality identified
--- NOTE | 2018-11-12 21:30 | CARD ---
APPROVED REPORT Date of service: 11/12/2018 EXAM: Two-dimensional and M-mode echocardiogram with Doppler and color Doppler. Other Information Quality : GoodRhythm : NSR INDICATION Peripheral Edema Fatigue HERNANDEZ M-Mode DIMENSIONS RVDd2.34 (2.1-3.2cm)Left Atrium (MM)5.70 (2.5-4.0cm) IVSd0.94 (0.7-1.1cm)Aortic Root2.89 (2.2-3.7cm) LVDd4.57 (4.0-5.6cm)Aortic Cusp Exc.1.72 (1.5-2.0cm) PWd1.17 (0.7-1.1cm)FS (%) 34 % LVDs3.01 (2.0-3.8cm)LVEF (%)63 (>50%) Aortic Valve AoV Peak Elipggzg254.8cm/Mariaa Peak GR.7mmHg Mitral Valve MV E Hkpkifoj085.0cm/sMV A Jkwmbder07.1cm/sE/A ratio4.3 TDI E/Lateral E'0.0E/Medial E'0.0 Tricuspid Valve TR Peak [id number]/sTR Peak Gr.[id number] LEFT VENTRICLE The Left Ventricle is mildly dilated. There is normal left ventricular wall thickness. Left ventricle systolic function is normal. The Ejection Fraction is 60-65%. There is normal LV segmental wall motion. Tissue Doppler imaging reveals abnormal left ventricular diastolic dysfunction. RIGHT VENTRICLE The right ventricle is normal size. There is normal right ventricular wall thickness. The right ventricular systolic function is normal. ATRIA The left atrium is moderately dilated. The right atrium is mildly dilated. There is a mass suspected in the right atrium. Suggest ANDREW. The thickening of interatrial septum suggests lipomatous hypertrophy. AORTIC VALVE The aortic valve is normal in structure. No aortic regurgitation is present. There is no aortic valvular stenosis. MITRAL VALVE The mitral valve is normal in structure. There is no evidence of mitral valve prolapse. There is no mitral valve stenosis. Mitral regurgitation is mild. TRICUSPID VALVE The tricuspid valve is normal in structure. There is mild tricuspid regurgitation. Right ventricular systolic pressure is estimated at 30-40 mmHg. There is mild-moderate pulmonary hypertension. PULMONIC VALVE The pulmonic valve is not well visualized. There is mild to moderate pulmonic valvular regurgitation. GREAT VESSELS The aortic root is normal in size. The IVC is normal in size and collapses >50% with inspiration. PERICARDIAL EFFUSION There is no significant pericardial effusion. <Conclusion> Left ventricle systolic function is normal. The Ejection Fraction is 60-65%. Diastolic dysfunction. There is a mass suspected in the right atrium. Suggest ANDREW. No aortic regurgitation is present. Mitral regurgitation is mild. There is mild tricuspid regurgitation. There is mild-moderate pulmonary hypertension. There is mild to moderate pulmonic valvular regurgitation.
[2018-11-13] MEDS: Levothyroxine 25 MCG TAB PO SCH (05:41)
--- NOTE | 2018-11-13 06:34 | CP.PCM.PN ---
<Cristopher Monroy - Last Filed: 11/13/18 06:31> Subjective - Date & Time of Evaluation Date of Evaluation: 11/13/18 Time of Evaluation: 06:31 - Subjective Subjective: PGY-1 Medicine Progress Note for Dr. Royal Patient seen and examined at bedside, in no acute distress. Patient states RLE swelling/pain has improved. SOB improved when she has O2 on, will follow up with case management during week about setting up home O2, which pt lost due to financial reasons. 12 pt ROS reviewed and otherwise negative at this time. Objective - Vital Signs/Intake and Output Vital Signs (last 24 hours): Temp Pulse Resp BP Pulse Ox 97.9 F 73 20 124/70 96 11/13/18 00:00 11/13/18 00:00 11/13/18 00:00 11/13/18 00:00 11/13/18 00:00 Intake and Output: 11/12/18 11/13/18 18:59 06:59 Intake Total 124 300 Output Total 500 Balance 124 -200 - Medications Medications: Current Medications Acetaminophen (Tylenol 325mg Tab) 975 mg PO Q6 PRN PRN Reason: Fever >100.4 F Alprazolam (Xanax) 0.25 mg PO BID PRN PRN Reason: Anxiety Stop: 11/18/18 19:30 Last Admin: 11/13/18 04:14 Dose: 0.25 mg Dabigatran (Pradaxa) 75 mg PO BID [facility] Last Admin: 11/12/18 17:24 Dose: 75 mg Doxycycline Hyclate (Doryx) 100 mg PO Q12H [facility]; Protocol Last Admin: 11/12/18 21:19 Dose: 100 mg Fluticasone/Vilanterol (Breo Ellipta 100-25 Mcg Inh) 1 puff INH RQD [facility] Ceftriaxone Sodium 1 gm/ (Sodium Chloride) 100 mls @ 100 mls/hr IVPB DAILY [facility]; Protocol Last Admin: 11/12/18 11:12 Dose: 100 mls/hr Lactobacillus Acidophilus (Lactobacillus) 1 cap PO BID [facility] Last Admin: 11/12/18 17:24 Dose: 1 cap Levothyroxine Sodium (Synthroid) 25 mcg PO DAILY@0630 [facility] Last Admin: 11/13/18 05:41 Dose: 25 mcg Losartan Potassium (Cozaar) 100 mg PO DAILY [facility] Last Admin: 11/12/18 11:11 Dose: 100 mg Pantoprazole Sodium (Protonix Inj) 40 mg IVP DAILY [facility] Last Admin: 11/12/18 11:11 Dose: 40 mg Prednisone (Prednisone Tab) 20 mg PO DAILY [facility] Last Admin: 11/12/18 11:11 Dose: 20 mg - Labs Labs: 11/12/18 06:47 11/12/18 06:47 PT 14.0 SECONDS (9.7-12.2) H 11/11/18 16:00 INR 1.3 11/11/18 16:00 APTT 72 SECONDS (21-34) H 11/11/18 16:00 - Constitutional Appears: Non-toxic, No Acute Distress - Head Exam Head Exam: ATRAUMATIC, NORMAL INSPECTION, NORMOCEPHALIC - Eye Exam Eye Exam: EOMI, Normal appearance, PERRL Pupil Exam: NORMAL ACCOMODATION - ENT Exam ENT Exam: Mucous Membranes Moist, Normal Exam - Neck Exam Neck Exam: Full ROM, Normal Inspection. absent: Tenderness - Respiratory Exam Respiratory Exam: Decreased Breath Sounds, Clear to Ausculation Bilateral. absent: Accessory Muscle Use, Rales, Rhonchi, Wheezes, Respiratory Distress, Stridor - Cardiovascular Exam Cardiovascular Exam: Irregular Rhythm, +S1, +S2 - GI/Abdominal Exam GI & Abdominal Exam: Soft, Normal Bowel Sounds. absent: Distended, Firm, Guarding, Rigid, Tenderness, Rebound - Extremities Exam Additional comments: Right lower extremity: demaracated erythema with warmth and tenderness with two 1-2 cm skin tears with dried blood. Bilateral lower extremity pulses intact. normal coloration. No motor or sensory deficits noted bilaterally. - Back Exam Back Exam: NORMAL INSPECTION - Neurological Exam Neurological Exam: Alert, Awake, Oriented x3 - Psychiatric Exam Psychiatric exam: Normal Affect, Normal Mood - Skin Skin Exam: Dry, Warm Additional comments: findings as per above Assessment and Plan - Assessment and Plan (Free Text) Assessment: 87 year old F with history of Atrial fibrillation (on pradaxa), HTN, COPD, anxiety, depression presenting with RLE wound, likely cellulitis, secondary to trauma 1 week ago. Plan: Right lower extremity cellulitis -Received vanc/zosyn x 1 in ED -patient is afebrile, no leukocytosis -LE Dopplers negative for DVT -D dimer negative -CXR: no acute findings -Right tib/fib XR negative -CT RLE: likely cellulitis, no fluid collection visualized -Rocephin 1g IV -Doxycycline 100mg Q12 -BCx: no growth after 24 hrs History of COPD -Untreated at home -No home medications except for inhaler occasionally -Pulmonology Dr. Patel consulted, help appreciated -Duonebs Q4 -Breo elipta 1 puff QD -prednisone 20 mg PO daily Atrial fibrillation -EKG: a fib, HR 66 bpm -Continue home pradaxa 75 mg PO BID Hx of HTN -Currently normotensive, continue to monitor -Continue home losartan 100 mg PO daily Hx of hypothyroidism -Restart home synthroid 25 mcg po daily Anxiety, Depression -Continue home xanax 0.25 mg PO BID prn PPx, Diet, Disposition -DVT ppx: home pradaxa -GI ppx: protonix 40 mg IV daily -Diet: HHD -PT/OT on board -Dispo: will need support set up at home, possible home O2. Case management for safe discharge Case discussed with Dr. Genny Monroy DO, PGY-1 <Fernando Royal - Last Filed: 11/13/18 09:49> Objective - Vital Signs/Intake and Output Vital Signs (last 24 hours): Temp Pulse Resp BP Pulse Ox 98 F 67 20 138/72 95 11/13/18 07:53 11/13/18 08:00 11/13/18 07:53 11/13/18 07:53 11/13/18 07:53 Intake and Output: 11/13/18 11/13/18 06:59 18:59 Intake Total 540 Output Total 500 Balance 40 - Medications Medications: Current Medications Acetaminophen (Tylenol 325mg Tab) 975 mg PO Q6 PRN PRN Reason: Fever >100.4 F Albuterol/Ipratropium (Duoneb 3 Mg/0.5 Mg (3 Ml) Ud) 3 ml INH RQ4 [facility] Last Admin: 11/13/18 07:50 Dose: 3 ml Alprazolam (Xanax) 0.25 mg PO BID PRN PRN Reason: Anxiety Stop: 11/18/18 19:30 Last Admin: 11/13/18 04:14 Dose: 0.25 mg Dabigatran (Pradaxa) 75 mg PO BID [facility] Last Admin: 11/12/18 17:24 Dose: 75 mg Doxycycline Hyclate (Doryx) 100 mg PO Q12H [facility]; Protocol Last Admin: 11/12/18 21:19 Dose: 100 mg Fluticasone/Vilanterol (Breo Ellipta 100-25 Mcg Inh) 1 puff INH RQD [facility] Last Admin: 11/13/18 07:50 Dose: 1 puff Ceftriaxone Sodium 1 gm/ (Sodium Chloride) 100 mls @ 100 mls/hr IVPB DAILY [facility]; Protocol Last Admin: 11/12/18 11:12 Dose: 100 mls/hr Lactobacillus Acidophilus (Lactobacillus) 1 cap PO BID [facility] Last Admin: 11/12/18 17:24 Dose: 1 cap Levothyroxine Sodium (Synthroid) 25 mcg PO DAILY@0630 [facility] Last Admin: 11/13/18 05:41 Dose: 25 mcg Losartan Potassium (Cozaar) 100 mg PO DAILY [facility] Last Admin: 11/12/18 11:11 Dose: 100 mg Pantoprazole Sodium (Protonix Inj) 40 mg IVP DAILY [facility] Last Admin: 11/12/18 11:11 Dose: 40 mg Prednisone (Prednisone Tab) 20 mg PO DAILY [facility] Last Admin: 11/12/18 11:11 Dose: 20 mg - Labs Labs: 11/13/18 07:27 11/13/18 07:27 PT 14.0 SECONDS (9.7-12.2) H 11/11/18 16:00 INR 1.3 11/11/18 16:00 APTT 72 SECONDS (21-34) H 11/11/18 16:00 Attending/Attestation - Attestation I have personally seen and examined this patient.: Yes I have fully participated in the care of the patient.: Yes I have reviewed all pertinent clinical information, including history, physical exam and plan: Yes Notes (Text): 11/13/18 09:44 Medical attending: Patient was seen and examined by me. Agree with the above note by the resident The patient was not in any acute distress at this time The patient is pending PT evaluation. The right lower extremity looks better to her she says, also less pain. The area was outlined by marker when she came and has decreased in size. No bleeding and no discharge. She is able to walk, however the question is now if she has desaturations when working with PT as mentioned previously she used to have home O2 but then it was removed for not clear reasons Also the other concern is ADLs - she lives alone and struggles to carefor her ownself she tells us Fernando Royal
[2018-11-13 07:38] LABS: BASO # 0.1 K/uL (0.0-0.2); EOS # 0.2 K/uL (0.0-0.7); HEMOGLOBIN 12.5 g/dL (11.0-16.0); LYMPH # 2.1 K/uL (1.0-4.3); LYMPH % 33.4 % (20.0-40.0); MEAN CELL VOLUME 86.7 fL (81.0-99.0); MEAN CORPUSCULAR HEMOGLOBIN 28.5 pg (27.0-31.0); MEAN CORPUSCULAR HGB CONC 32.9 g/dL (33.0-37.0); MEAN PLATELET VOLUME 8.7 fL (7.2-11.7); MONO # 0.7 K/uL (0.0-0.8); MONO % 11.1 % (0.0-10.0); NEUT # 3.2 K/uL (1.8-7.0); NEUT % 51.5 % (50.0-75.0); RBC 4.38 Mil/uL (3.80-5.20); RED CELL DISTRIBUTION WIDTH 14.7 % (11.5-14.5); WHITE BLOOD COUNT 6.2 K/uL (4.8-10.8)
[2018-11-13 07:48] LABS: ALB/GLOB RATIO 1.3 (1.0-2.1); ALBUMIN 3.6 g/dL (3.5-5.0); ALT/SGPT 17 U/L (9-52); AST/SGOT 31 U/L (14-36); BLOOD UREA NITROGEN 24 mg/dL (7-17); CALCIUM 8.6 mg/dl (8.6-10.4); GFR NON-AFRICAN AMERICAN 59
[2018-11-13] MEDS: Fluticasone-Vilanterol 100/25mcg Diskus INH SCH (07:50)
[2018-11-13] MEDS: Albuterol-Ipratrop 3 mg / 0.5 (3 ml) UD INH SCH ×4 (07:50→20:35)
[2018-11-13] MEDS: Lactobacillus Acidophilus 500 MU Cap PO SCH ×2 (09:44→17:32)
[2018-11-14] MEDS: Albuterol-Ipratrop 3 mg / 0.5 (3 ml) UD INH SCH ×6 (03:26→19:49)
[2018-11-14] MEDS: Levothyroxine 25 MCG TAB PO SCH (05:48)
[2018-11-14] MEDS: Fluticasone-Vilanterol 100/25mcg Diskus INH SCH (07:10)
[2018-11-14 08:08] LABS: BASO # 0.1 K/uL (0.0-0.2); EOS # 0.1 K/uL (0.0-0.7); EOS % 1.3 % (0.0-4.0); HEMOGLOBIN 12.3 g/dL (11.0-16.0); LYMPH # 2.1 K/uL (1.0-4.3); LYMPH % 33.1 % (20.0-40.0); MEAN CELL VOLUME 86.5 fL (81.0-99.0); MEAN CORPUSCULAR HEMOGLOBIN 28.2 pg (27.0-31.0); MEAN CORPUSCULAR HGB CONC 32.6 g/dL (33.0-37.0); MEAN PLATELET VOLUME 8.6 fL (7.2-11.7); MONO # 0.7 K/uL (0.0-0.8); MONO % 10.8 % (0.0-10.0); NEUT # 3.4 K/uL (1.8-7.0); NEUT % 53.8 % (50.0-75.0); NRBC % 0.1 % (0.0-2.0); RBC 4.36 Mil/uL (3.80-5.20); RED CELL DISTRIBUTION WIDTH 14.4 % (11.5-14.5); WHITE BLOOD COUNT 6.3 K/uL (4.8-10.8)
[2018-11-14 08:14] LABS: ALB/GLOB RATIO 1.3 (1.0-2.1); ALBUMIN 3.8 g/dL (3.5-5.0); ALT/SGPT 16 U/L (9-52); AST/SGOT 30 U/L (14-36); BLOOD UREA NITROGEN 25 mg/dL (7-17); CALCIUM 8.7 mg/dl (8.6-10.4); GFR NON-AFRICAN AMERICAN 59
--- NOTE | 2018-11-14 08:24 | CP.PCM.PN ---
Subjective - Date & Time of Evaluation Date of Evaluation: 11/14/18 Time of Evaluation: 08:24 - Subjective Subjective: PGY-1 Medicine Progress Note for Dr. Jackson Patient seen and examined sitting at bedside this AM with NC. No acute overnight events reported. RLE erythema continues to improve, minimal tenderness. Patient still complains of some shortness of breath with movement. 12 pt ROS reviewed and otherwise negative. Discussed possibility of TCU for patient, which she refuses. Expresses wishes to go home, will need to follow up with case mgmt regarding home service needs. Objective - Vital Signs/Intake and Output Vital Signs (last 24 hours): Temp Pulse Resp BP Pulse Ox 97.8 F 74 20 118/68 98 11/14/18 00:00 11/14/18 00:00 11/14/18 00:00 11/14/18 00:00 11/14/18 03:30 Intake and Output: 11/14/18 11/14/18 06:59 18:59 Intake Total 500 Output Total 500 Balance 0 - Medications Medications: Current Medications Acetaminophen (Tylenol 325mg Tab) 975 mg PO Q6 PRN PRN Reason: Fever >100.4 F Albuterol/Ipratropium (Duoneb 3 Mg/0.5 Mg (3 Ml) Ud) 3 ml INH RQ4 [facility] Last Admin: 11/14/18 03:26 Dose: 3 ml Alprazolam (Xanax) 0.25 mg PO BID PRN PRN Reason: Anxiety Stop: 11/18/18 19:30 Last Admin: 11/13/18 21:21 Dose: 0.25 mg Dabigatran (Pradaxa) 75 mg PO BID [facility] Last Admin: 11/13/18 17:32 Dose: 75 mg Doxycycline Hyclate (Doryx) 100 mg PO Q12H [facility]; Protocol Last Admin: 11/13/18 21:21 Dose: 100 mg Fluticasone/Vilanterol (Breo Ellipta 100-25 Mcg Inh) 1 puff INH RQD [facility] Last Admin: 11/13/18 07:50 Dose: 1 puff Ceftriaxone Sodium 1 gm/ (Sodium Chloride) 100 mls @ 100 mls/hr IVPB DAILY [facility]; Protocol Last Admin: 11/13/18 09:43 Dose: 100 mls/hr Lactobacillus Acidophilus (Lactobacillus) 1 cap PO BID [facility] Last Admin: 11/13/18 17:32 Dose: 1 cap Levothyroxine Sodium (Synthroid) 25 mcg PO DAILY@0630 [facility] Last Admin: 11/14/18 05:48 Dose: 25 mcg Losartan Potassium (Cozaar) 100 mg PO DAILY [facility] Last Admin: 11/13/18 09:44 Dose: 100 mg Pantoprazole Sodium (Protonix Inj) 40 mg IVP DAILY [facility] Last Admin: 11/13/18 09:44 Dose: 40 mg Prednisone (Prednisone Tab) 20 mg PO DAILY [facility] Last Admin: 11/13/18 09:44 Dose: 20 mg - Labs Labs: 11/14/18 07:51 11/14/18 07:51 PT 14.0 SECONDS (9.7-12.2) H 11/11/18 16:00 INR 1.3 11/11/18 16:00 APTT 72 SECONDS (21-34) H 11/11/18 16:00 - Constitutional Appears: Non-toxic, No Acute Distress - Head Exam Head Exam: ATRAUMATIC, NORMAL INSPECTION, NORMOCEPHALIC - Eye Exam Eye Exam: EOMI, Normal appearance Pupil Exam: NORMAL ACCOMODATION - ENT Exam ENT Exam: Mucous Membranes Moist, Normal Exam - Neck Exam Neck Exam: Full ROM, Normal Inspection. absent: Tenderness - Respiratory Exam Respiratory Exam: Decreased Breath Sounds, Clear to Ausculation Bilateral, NORMAL BREATHING PATTERN. absent: Accessory Muscle Use, Rales, Rhonchi, Wheezes, Respiratory Distress, Stridor - Cardiovascular Exam Cardiovascular Exam: +S1, +S2 - GI/Abdominal Exam GI & Abdominal Exam: Soft, Normal Bowel Sounds. absent: Distended, Firm, Guarding, Rigid, Tenderness, Rebound - Extremities Exam Extremities Exam: Full ROM, Normal Capillary Refill, Normal Inspection, Pedal Edema. absent: Calf Tenderness Additional comments: Right lower extremity: diminished demaracated erythema, less warmth, mild TTP Bilateral lower extremity pulses intact. normal coloration. No motor or sensory deficits noted bilaterally. - Back Exam Back Exam: NORMAL INSPECTION - Neurological Exam Neurological Exam: Alert, Awake, CN II-XII Intact, Oriented x3 - Psychiatric Exam Psychiatric exam: Normal Affect, Normal Mood - Skin Skin Exam: Dry, Intact, Normal Color Additional comments: findings as above Assessment and Plan - Assessment and Plan (Free Text) Assessment: 87 year old F with history of Atrial fibrillation (on pradaxa), HTN, COPD, anxiety, depression presenting with RLE wound, likely cellulitis, secondary to trauma 1 week ago. Plan: Right lower extremity cellulitis -Received vanc/zosyn x 1 in ED -patient is afebrile, no leukocytosis -LE Dopplers negative for DVT -D dimer negative -CXR: no acute findings -Right tib/fib XR negative -CT RLE: likely cellulitis, no fluid collection visualized -Rocephin 1g IV -Doxycycline 100mg Q12 -BCx: no growth History of COPD -Untreated at home -No home medications except for inhaler occasionally -Duonebs Q4 -Breo elipta 1 puff QD -prednisone 20 mg PO daily Atrial fibrillation -EKG: a fib, HR 66 bpm -Continue home pradaxa 75 mg PO BID Hx of HTN -Currently normotensive, continue to monitor -Continue home losartan 100 mg PO daily Hx of hypothyroidism -Restart home synthroid 25 mcg po daily Anxiety, Depression -Continue home xanax 0.25 mg PO BID prn PPx, Diet, Disposition -DVT ppx: home pradaxa -GI ppx: protonix 40 mg IV daily -Diet: HHD -PT/OT on board -Dispo: will need support set up at home, possible home O2. Case management for safe discharge. Case discussed with Dr. Renetta Monroy DO, PGY-1
[2018-11-14] MEDS: Lactobacillus Acidophilus 500 MU Cap PO SCH ×2 (09:57→17:04)
[2018-11-15] MEDS: Albuterol-Ipratrop 3 mg / 0.5 (3 ml) UD INH SCH ×6 (00:53→19:51)
[2018-11-15] MEDS: Levothyroxine 25 MCG TAB PO SCH (05:34)
[2018-11-15] MEDS: Fluticasone-Vilanterol 100/25mcg Diskus INH SCH (07:25)
[2018-11-15] MEDS: Lactobacillus Acidophilus 500 MU Cap PO SCH ×2 (09:07→17:44)
--- NOTE | 2018-11-15 09:19 | CP.PCM.PN ---
Subjective - Date & Time of Evaluation Date of Evaluation: 11/15/18 Time of Evaluation: 09:16 - Subjective Subjective: PGY-1 Medicine Progress Note for Dr. Jackson Patient seen and examined at bedside, in no acute distress. No acute overnight events. SOB improved with NC. Right lower extremity continues to improve, erythema and tenderness subsiding. Pt reiterates wishes to go home, refuses recommendations of rehab. Will follow up with case mgmt re: home services and need for possible home O2. 12 pt ROS reviewed and otherwise negative. Objective - Vital Signs/Intake and Output Vital Signs (last 24 hours): Temp Pulse Resp BP Pulse Ox 97.7 F 80 20 165/86 H 98 11/15/18 07:24 11/15/18 07:24 11/15/18 07:24 11/15/18 07:24 11/15/18 07:24 Intake and Output: 11/15/18 11/15/18 06:59 18:59 Intake Total 540 Output Total 600 Balance -60 - Medications Medications: Current Medications Acetaminophen (Tylenol 325mg Tab) 975 mg PO Q6 PRN PRN Reason: Fever >100.4 F Albuterol/Ipratropium (Duoneb 3 Mg/0.5 Mg (3 Ml) Ud) 3 ml INH RQ4 [facility] Last Admin: 11/15/18 07:25 Dose: 3 ml Alprazolam (Xanax) 0.25 mg PO BID PRN PRN Reason: Anxiety Stop: 11/18/18 19:30 Last Admin: 11/14/18 21:37 Dose: 0.25 mg Dabigatran (Pradaxa) 75 mg PO BID [facility] Last Admin: 11/15/18 09:08 Dose: 75 mg Doxycycline Hyclate (Doryx) 100 mg PO Q12H [facility]; Protocol Last Admin: 11/14/18 21:37 Dose: 100 mg Fluticasone/Vilanterol (Breo Ellipta 100-25 Mcg Inh) 1 puff INH RQD [facility] Last Admin: 11/15/18 07:25 Dose: 1 puff Ceftriaxone Sodium 1 gm/ (Sodium Chloride) 100 mls @ 100 mls/hr IVPB DAILY [facility]; Protocol Last Admin: 11/14/18 09:55 Dose: 100 mls/hr Lactobacillus Acidophilus (Lactobacillus) 1 cap PO BID [facility] Last Admin: 11/15/18 09:07 Dose: 1 cap Levothyroxine Sodium (Synthroid) 25 mcg PO DAILY@0630 [facility] Last Admin: 11/15/18 05:34 Dose: 25 mcg Losartan Potassium (Cozaar) 100 mg PO DAILY [facility] Last Admin: 11/15/18 09:09 Dose: 100 mg Pantoprazole Sodium (Protonix Inj) 40 mg IVP DAILY [facility] Last Admin: 11/15/18 09:09 Dose: 40 mg Prednisone (Prednisone Tab) 20 mg PO DAILY [facility] Last Admin: 11/15/18 09:09 Dose: 20 mg - Labs Labs: 11/14/18 07:51 11/14/18 07:51 PT 14.0 SECONDS (9.7-12.2) H 11/11/18 16:00 INR 1.3 11/11/18 16:00 APTT 72 SECONDS (21-34) H 11/11/18 16:00 - Constitutional Appears: Non-toxic, No Acute Distress - Head Exam Head Exam: ATRAUMATIC, NORMAL INSPECTION, NORMOCEPHALIC - Eye Exam Eye Exam: EOMI, Normal appearance, PERRL Pupil Exam: NORMAL ACCOMODATION - ENT Exam ENT Exam: Mucous Membranes Moist, Normal Exam - Neck Exam Neck Exam: Full ROM, Normal Inspection. absent: Tenderness - Respiratory Exam Respiratory Exam: Decreased Breath Sounds, Clear to Ausculation Bilateral, NORMAL BREATHING PATTERN. absent: Accessory Muscle Use, Rales, Rhonchi, Wheezes , Respiratory Distress, Stridor - Cardiovascular Exam Cardiovascular Exam: REGULAR RHYTHM, +S1, +S2 - GI/Abdominal Exam GI & Abdominal Exam: Soft, Normal Bowel Sounds. absent: Distended, Firm, Guarding, Rigid, Tenderness, Organomegaly, Rebound - Extremities Exam Extremities Exam: Full ROM, Normal Capillary Refill, Normal Inspection. absent: Calf Tenderness Additional comments: Right lower extremity: diminished erythema, minimal TTP Bilateral lower extremity pulses intact. normal coloration. No motor or sensory deficits noted bilaterally. - Back Exam Back Exam: NORMAL INSPECTION - Neurological Exam Neurological Exam: Alert, Awake, Oriented x3 - Psychiatric Exam Psychiatric exam: Normal Affect, Normal Mood - Skin Skin Exam: Dry, Warm Additional comments: findings as above Assessment and Plan - Assessment and Plan (Free Text) Assessment: 87 year old F with history of Atrial fibrillation (on pradaxa), HTN, COPD, anxiety, depression presenting with RLE wound, likely cellulitis, secon aristides to trauma 1 week ago. Plan: Right lower extremity cellulitis -Received vanc/zosyn x 1 in ED -patient is afebrile, no leukocytosis -LE Dopplers negative for DVT -D dimer negative -CXR: no acute findings -Right tib/fib XR negative -CT RLE: likely cellulitis, no fluid collection visualized -Wound care nursing recs appreciated: recommending to dissolve boggy scabs using medihoney, then covering with thick foam dressing to be changed every other day. -Rocephin 1g IV -Doxycycline 100mg Q12 -BCx, Urine Cx: no growth History of COPD -Untreated at home -No home medications except for inhaler occasionally -Duonebs Q4 -Breo elipta 1 puff QD -prednisone 20 mg PO daily Atrial fibrillation -EKG: a fib, HR 66 bpm -Continue home pradaxa 75 mg PO BID Hx of HTN -Currently normotensive, continue to monitor -Continue home losartan 100 mg PO daily Hx of hypothyroidism -Restart home synthroid 25 mcg po daily Anxiety, Depression -Continue home xanax 0.25 mg PO BID prn PPx, Diet, Disposition -DVT ppx: home pradaxa -GI ppx: protonix 40 mg IV daily -Diet: HHD -PT/OT on board -Dispo: will need support set up at home, possible home O2. Case management for safe discharge. Case discussed with Dr. Renetta Monroy DO, PGY-1
[2018-11-15 11:35] LABS: HEMOGLOBIN 12.6 g/dL (11.0-16.0); MEAN CORPUSCULAR HEMOGLOBIN 28.2 pg (27.0-31.0); MEAN CORPUSCULAR HGB CONC 32.4 g/dL (33.0-37.0); MEAN PLATELET VOLUME 8.8 fL (7.2-11.7); RBC 4.47 Mil/uL (3.80-5.20); RED CELL DISTRIBUTION WIDTH 15.2 % (11.5-14.5); WHITE BLOOD COUNT 7.1 K/uL (4.8-10.8)
[2018-11-15 11:44] LABS: BLOOD UREA NITROGEN 24 mg/dL (7-17); CALCIUM 8.7 mg/dl (8.6-10.4); GFR NON-AFRICAN AMERICAN 59
--- NOTE | 2018-11-15 13:25 | CP.PCM.DIS ---
<Cristopher Monroy - Last Filed: 11/16/18 16:10> Provider - Provider Date of Admission: 11/14/18 08:30 Attending physician: Terell Jackson MD Consults: 11/11/18 19:33 Case Management Referral Routine Comment: Physician Instructions: Reason For Exam: ADL restriction Reason for Referral: Discharge Planning 11/11/18 21:07 Nursing Referral for Wound Care Routine Comment: Physician Instructions: Reason For Exam: right lower leg wound Time Spent in preparation of Discharge (in minutes): 40 Hospital Course - Lab Results Lab Results: Micro Results 11/11/18 09:33 Blood Blood Culture - Preliminary NO GROWTH AFTER 3 DAYS 11/11/18 16:00 Blood Blood Culture - Preliminary NO GROWTH AFTER 3 DAYS 11/11/18 17:00 Urine Random Urine Culture - Final No Growth (<1,000 CFU/ML) Most Recent Lab Values WBC 7.1 K/uL (4.8-10.8) 11/15/18 11:26 RBC 4.47 Mil/uL (3.80-5.20) 11/15/18 11:26 Hgb 12.6 g/dL (11.0-16.0) 11/15/18 11:26 Hct 38.9 % (34.0-47.0) 11/15/18 11:26 MCV 87.0 fL (81.0-99.0) 11/15/18 11:26 MCH 28.2 pg (27.0-31.0) 11/15/18 11:26 MCHC 32.4 g/dL (33.0-37.0) L 11/15/18 11:26 RDW 15.2 % (11.5-14.5) H 11/15/18 11:26 Plt Count 193 K/uL (130-400) 11/15/18 11:26 MPV 8.8 fL (7.2-11.7) 11/15/18 11:26 Neut % (Auto) 53.8 % (50.0-75.0) 11/14/18 07:51 Lymph % (Auto) 33.1 % (20.0-40.0) 11/14/18 07:51 Fisher % (Auto) 10.8 % (0.0-10.0) H 11/14/18 07:51 Eos % (Auto) 1.3 % (0.0-4.0) 11/14/18 07:51 Baso % (Auto) 1.0 % (0.0-2.0) 11/14/18 07:51 Neut # (Auto) 3.4 K/uL (1.8-7.0) 11/14/18 07:51 Lymph # (Auto) 2.1 K/uL (1.0-4.3) 11/14/18 07:51 Fisher # (Auto) 0.7 K/uL (0.0-0.8) 11/14/18 07:51 Eos # (Auto) 0.1 K/uL (0.0-0.7) 11/14/18 07:51 Baso # (Auto) 0.1 K/uL (0.0-0.2) 11/14/18 07:51 PT 14.0 SECONDS (9.7-12.2) H 11/11/18 16:00 INR 1.3 11/11/18 16:00 APTT 72 SECONDS (21-34) H 11/11/18 16:00 D-Dimer, Quantitative < 200 ng/mlDDU (0-243) 11/11/18 16:00 Sodium 137 mmol/L (132-148) 11/15/18 11:26 Potassium 3.8 mmol/L (3.6-5.2) 11/15/18 11:26 Chloride 101 mmol/L (98-107) 11/15/18 11:26 Carbon Dioxide 29 mmol/L (22-30) 11/15/18 11:26 Anion Gap 11 (10-20) 11/15/18 11:26 BUN 24 mg/dL (7-17) H 11/15/18 11:26 Creatinine 0.9 mg/dL (0.7-1.2) 11/15/18 11:26 Est GFR ( Amer) > 60 11/15/18 11:26 Est GFR (Non-Af Amer) 59 11/15/18 11:26 POC Glucose (mg/dL) 87 mg/dL (65-110) 11/12/18 02:08 Random Glucose 96 mg/dL (65-105) 11/15/18 11:26 Calcium 8.7 mg/dl (8.6-10.4) 11/15/18 11:26 Phosphorus 3.7 mg/dL (2.5-4.5) 11/14/18 07:51 Magnesium 2.0 mg/dL (1.6-2.3) 11/14/18 07:51 Total Bilirubin 0.4 mg/dL (0.2-1.3) 11/14/18 07:51 AST 30 U/L (14-36) 11/14/18 07:51 ALT 16 U/L (9-52) 11/14/18 07:51 Alkaline Phosphatase 68 U/L (38-126) 11/14/18 07:51 Troponin I < 0.0120 ng/mL (0.00-0.120) 11/11/18 16:00 NT-Pro-B Natriuret Pep 1880 pg/mL (0-900) H 11/11/18 16:00 Total Protein 6.7 g/dL (6.3-8.3) 11/14/18 07:51 Albumin 3.8 g/dL (3.5-5.0) 11/14/18 07:51 Globulin 2.9 gm/dL (2.2-3.9) 11/14/18 07:51 Albumin/Globulin Ratio 1.3 (1.0-2.1) 11/14/18 07:51 Procalcitonin < 0.05 NG/ML (0.19-0.49) L 11/12/18 11:18 Urine Color Yellow (YELLOW) 11/11/18 17:00 Urine Clarity Sl hazy (Clear) 11/11/18 17:00 Urine pH 5.0 (5.0-8.0) 11/11/18 17:00 Ur Specific [place] 1.014 (1.003-1.030) 11/11/18 17:00 Urine Protein Negative mg/dL (NEGATIVE) 11/11/18 17:00 Urine Glucose (UA) Normal mg/dL (Normal) 11/11/18 17:00 Urine Ketones Negative mg/dL (NEGATIVE) 11/11/18 17:00 Urine Blood Negative (NEGATIVE) 11/11/18 17:00 Urine Nitrate Negative (NEGATIVE) 11/11/18 17:00 Urine Bilirubin Negative (NEGATIVE) 11/11/18 17:00 Urine Urobilinogen Normal mg/dL (0.2-1.0) 11/11/18 17:00 Ur Leukocyte Esterase 2+ Kareem/uL (Negative) H 11/11/18 17:00 Urine WBC (Auto) 18 /hpf (0-5) H 11/11/18 17:00 Urine RBC (Auto) 2 /hpf (0-3) 11/11/18 17:00 Ur Squamous Epith Cells 1 /hpf (0-5) 11/11/18 17:00 Urine Bacteria Rare (<OCC) 11/11/18 17:00 - Hospital Course Hospital Course: HPI: Patient is an 87 year old female with past medical history of Atrial fibrillation (on Pradaxa), hypertension, COPD, gastritis, anxiety/depression presenting to ED for RLE wound/cellulitis after hitting the anterior portion of her lower R leg on the edge of a metallic filing cabinet 1 week ago. Patient denies any falls or head trauma. She tried cleaning out the wound with soap and water at home, put some bacitracin ointment on it but says it worsened over the course of 1 week. She denies any fevers/chills, headaches, dizziness, chest pain, palpitations, sob, cough, abdominal pain, nausea/vomiting/diarrhea/constipation, dysuria. 12 pt ROS reviewed and otherwise negative. Of note, patient was on home O2 but says it was taken away last week b/c of insurance. During the course of admission: Chest Xray and Right tibia/fibula xray demonstrated no acute pathology. CT of the right lower extremity confirmed likely cellulitis picture. Patient was started on rocephin and doxycycline. All home medications were restarted and patient's shortness of breath was treated with scheduled duonebulizers, breo ellipta, and steroids. Patient's cellulitis improved during hospital course, with erythema and tenderness subsiding. Patient's shortness of breath also improved though patient was noted to desaturate below 90% on room air. Physical therapy evaluation recommended subacute rehab, which patient refused, expressing her wishes to go home. health service worker spoke to patient's daughter who is aware of her wishes and amenable to plan. Home services and home oxygen were subsequently set up for patient prior to discharge by case management. Patient remained afebrile with no leukocytosis noted or positive culture growth. Patient is medically stable for discharge to home with home services, as per Dr. Jackson. She is instructed to continue all home medications as currently prescribed. Please continue taking Doxycycline for right leg cellulitis as indicated below: Doxycycline 100 mg PO, twice daily, for 5 more days Please follow up with your primary care provider and private general manager in training within 3-5 days of discharge for further monitoring and continued care. - Date & Time of H&P Date of H&P: 11/16/18 Time of H&P: 15:37 Discharge Exam - Head Exam Head Exam: ATRAUMATIC, NORMAL INSPECTION, NORMOCEPHALIC - Eye Exam Eye Exam: EOMI, Normal appearance Pupil Exam: NORMAL ACCOMODATION - ENT Exam ENT Exam: Mucous Membranes Moist, Normal Exam - Neck Exam Neck exam: Full Rom, Normal Inspection - Respiratory Exam Respiratory Exam: Clear to PA & Lateral, NORMAL BREATHING PATTERN, UNREMARKABLE. absent: Accessory Muscle Use, Decreased Breath Sounds, Rhonchi, Wheezes, Respiratory Distress, Stridor - Cardiovascular Exam Cardiovascular Exam: REGULAR RHYTHM, +S1, +S2 - GI/Abdominal Exam GI & Abdominal Exam: Normal Bowel Sounds, Soft, Unremarkable - Extremities Exam Extremities exam: normal capillary refill, pedal edema, pedal pulses present Additional comments: Proximal laceration measuring; 2.8 x 2.6 cm. Right distal laceration measuring 1.3 x 1.0. Both with dry boggy bases, no drainage - Back Exam Back exam: NORMAL INSPECTION - Neurological Exam Neurological exam: Alert, CN II-XII Intact, Oriented x3 - Psychiatric Exam Psychiatric exam: Normal Affect, Normal Mood - Skin Skin Exam: Dry, Intact, Warm Additional comments: findings as above Discharge Plan - Discharge Medications Prescriptions: Dabigatran [Pradaxa] 75 mg PO BID #60 cap Doxycycline Monohydrate 100 mg PO BID 5 Days capsule Losartan [Cozaar] 100 mg PO DAILY #30 tab - Follow Up Plan Condition: GOOD Disposition: HOME/ ROUTINE Instructions: Dabigatran Etexilate, Doxycycline, Losartan, Urinary Tract Infection in Women (DC), Cellulitis (DC) Additional Instructions: Physical therapy evaluation recommended subacute rehab, which patient refused, expressing her wishes to go home. health service worker spoke to patient's daughter who is aware of her wishes and amenable to plan. Home services and home oxygen were subsequently set up for patient prior to discharge by case management. Patient remained afebrile with no leukocytosis noted or positive culture growth. Patient is medically stable for discharge to home with home services, as per Dr. Jackson. She is instructed to continue all home medications as currently prescribed. Please continue taking Doxycycline for right leg cellulitis as indicated below: Doxycycline 100 mg PO, twice daily, for 5 more days Please follow up with your primary care provider and private general manager in training within 3-5 days of discharge for further monitoring and continued care. Referrals: Griffin Sherman MD [Staff Provider] - Shantell Cancino MD [Staff Provider] - <Terell Jackson - Last Filed: 11/16/18 18:43> Provider - Provider Date of Admission: 11/14/18 08:30 Attending physician: Terell Jackson MD Consults: 11/11/18 19:33 Case Management Referral Routine Comment: Physician Instructions: Reason For Exam: ADL restriction Reason for Referral: Discharge Planning 11/11/18 21:07 Nursing Referral for Wound Care Routine Comment: Physician Instructions: Reason For Exam: right lower leg wound Hospital Course - Lab Results Lab Results: Micro Results 11/11/18 16:00 Blood Blood Culture - Final NO GROWTH AFTER 5 DAYS 11/11/18 16:00 Blood Gram Stain - Final TEST NOT PERFORMED 11/11/18 09:33 Blood Blood Culture - Preliminary NO GROWTH AFTER 4 DAYS 11/11/18 17:00 Urine Random Urine Culture - Final No Growth (<1,000 CFU/ML) Most Recent Lab Values WBC 7.6 K/uL (4.8-10.8) 11/16/18 06:46 RBC 4.51 Mil/uL (3.80-5.20) 11/16/18 06:46 Hgb 12.6 g/dL (11.0-16.0) 11/16/18 06:46 Hct 39.2 % (34.0-47.0) 11/16/18 06:46 MCV 86.8 fL (81.0-99.0) 11/16/18 06:46 MCH 27.8 pg (27.0-31.0) 11/16/18 06:46 MCHC 32.1 g/dL (33.0-37.0) L 11/16/18 06:46 RDW 15.1 % (11.5-14.5) H 11/16/18 06:46 Plt Count 193 K/uL (130-400) 11/16/18 06:46 MPV 8.8 fL (7.2-11.7) 11/16/18 06:46 Neut % (Auto) 55.5 % (50.0-75.0) 11/16/18 06:46 Lymph % (Auto) 29.8 % (20.0-40.0) 11/16/18 06:46 Fisher % (Auto) 11.1 % (0.0-10.0) H 11/16/18 06:46 Eos % (Auto) 2.4 % (0.0-4.0) 11/16/18 06:46 Baso % (Auto) 1.2 % (0.0-2.0) 11/16/18 06:46 Neut # (Auto) 4.2 K/uL (1.8-7.0) 11/16/18 06:46 Lymph # (Auto) 2.3 K/uL (1.0-4.3) 11/16/18 06:46 Fisher # (Auto) 0.8 K/uL (0.0-0.8) 11/16/18 06:46 Eos # (Auto) 0.2 K/uL (0.0-0.7) 11/16/18 06:46 Baso # (Auto) 0.1 K/uL (0.0-0.2) 11/16/18 06:46 PT 14.0 SECONDS (9.7-12.2) H 11/11/18 16:00 INR 1.3 11/11/18 16:00 APTT 72 SECONDS (21-34) H 11/11/18 16:00 D-Dimer, Quantitative < 200 ng/mlDDU (0-243) 11/11/18 16:00 Sodium 136 mmol/L (132-148) 11/16/18 06:46 Potassium 4.7 mmol/L (3.6-5.2) 11/16/18 06:46 Chloride 102 mmol/L (98-107) 11/16/18 06:46 Carbon Dioxide 29 mmol/L (22-30) 11/16/18 06:46 Anion Gap 10 (10-20) 11/16/18 06:46 BUN 31 mg/dL (7-17) H 11/16/18 06:46 Creatinine 0.9 mg/dL (0.7-1.2) 11/16/18 06:46 Est GFR ( Amer) > 60 11/16/18 06:46 Est GFR (Non-Af Amer) 59 11/16/18 06:46 POC Glucose (mg/dL) 87 mg/dL (65-110) 11/12/18 02:08 Random Glucose 84 mg/dL (65-105) 11/16/18 06:46 Calcium 9.0 mg/dl (8.6-10.4) 11/16/18 06:46 Phosphorus 3.7 mg/dL (2.5-4.5) 11/14/18 07:51 Magnesium 2.0 mg/dL (1.6-2.3) 11/14/18 07:51 Total Bilirubin 0.4 mg/dL (0.2-1.3) 11/14/18 07:51 AST 30 U/L (14-36) 11/14/18 07:51 ALT 16 U/L (9-52) 11/14/18 07:51 Alkaline Phosphatase 68 U/L (38-126) 11/14/18 07:51 Troponin I < 0.0120 ng/mL (0.00-0.120) 11/11/18 16:00 NT-Pro-B Natriuret Pep 1880 pg/mL (0-900) H 11/11/18 16:00 Total Protein 6.7 g/dL (6.3-8.3) 11/14/18 07:51 Albumin 3.8 g/dL (3.5-5.0) 11/14/18 07:51 Globulin 2.9 gm/dL (2.2-3.9) 11/14/18 07:51 Albumin/Globulin Ratio 1.3 (1.0-2.1) 11/14/18 07:51 Procalcitonin < 0.05 NG/ML (0.19-0.49) L 11/12/18 11:18 Urine Color Yellow (YELLOW) 11/11/18 17:00 Urine Clarity Sl hazy (Clear) 11/11/18 17:00 Urine pH 5.0 (5.0-8.0) 11/11/18 17:00 Ur Specific [place] 1.014 (1.003-1.030) 11/11/18 17:00 Urine Protein Negative mg/dL (NEGATIVE) 11/11/18 17:00 Urine Glucose (UA) Normal mg/dL (Normal) 11/11/18 17:00 Urine Ketones Negative mg/dL (NEGATIVE) 11/11/18 17:00 Urine Blood Negative (NEGATIVE) 11/11/18 17:00 Urine Nitrate Negative (NEGATIVE) 11/11/18 17:00 Urine Bilirubin Negative (NEGATIVE) 11/11/18 17:00 Urine Urobilinogen Normal mg/dL (0.2-1.0) 11/11/18 17:00 Ur Leukocyte Esterase 2+ Kareem/uL (Negative) H 11/11/18 17:00 Urine WBC (Auto) 18 /hpf (0-5) H 11/11/18 17:00 Urine RBC (Auto) 2 /hpf (0-3) 11/11/18 17:00 Ur Squamous Epith Cells 1 /hpf (0-5) 11/11/18 17:00 Urine Bacteria Rare (<OCC) 11/11/18 17:00 Attending/Attestation - Attestation I have personally seen and examined this patient.: Yes I have fully participated in the care of the patient.: Yes I have reviewed all pertinent clinical information, including history, physical exam and plan: Yes
[2018-11-16] MEDS: Albuterol-Ipratrop 3 mg / 0.5 (3 ml) UD INH SCH ×4 (00:26→11:50)
[2018-11-16] MEDS: Levothyroxine 25 MCG TAB PO SCH (05:34)
[2018-11-16 07:03] LABS: BASO # 0.1 K/uL (0.0-0.2); BASO % 1.2 % (0.0-2.0); EOS # 0.2 K/uL (0.0-0.7); EOS % 2.4 % (0.0-4.0); HEMOGLOBIN 12.6 g/dL (11.0-16.0); LYMPH # 2.3 K/uL (1.0-4.3); LYMPH % 29.8 % (20.0-40.0); MEAN CELL VOLUME 86.8 fL (81.0-99.0); MEAN CORPUSCULAR HEMOGLOBIN 27.8 pg (27.0-31.0); MEAN CORPUSCULAR HGB CONC 32.1 g/dL (33.0-37.0); MEAN PLATELET VOLUME 8.8 fL (7.2-11.7); MONO # 0.8 K/uL (0.0-0.8); MONO % 11.1 % (0.0-10.0); NEUT # 4.2 K/uL (1.8-7.0); NEUT % 55.5 % (50.0-75.0); RBC 4.51 Mil/uL (3.80-5.20); RED CELL DISTRIBUTION WIDTH 15.1 % (11.5-14.5); WHITE BLOOD COUNT 7.6 K/uL (4.8-10.8)
[2018-11-16 07:32] LABS: BLOOD UREA NITROGEN 31 mg/dL (7-17); GFR NON-AFRICAN AMERICAN 59
[2018-11-16] MEDS: Fluticasone-Vilanterol 100/25mcg Diskus INH SCH (07:50)
[2018-11-16] MEDS: Lactobacillus Acidophilus 500 MU Cap PO SCH ×2 (09:52→17:48)
[2018-11-16] MEDS ORDERED: Pantoprazole 40 mg EC Tab PO SCH (10:00)
--- NOTE | 2018-11-16 14:46 | CP.PCM.PN ---
Subjective - Date & Time of Evaluation Date of Evaluation: 11/16/18 Time of Evaluation: 14:38 - Subjective Subjective: PGY-1 Medicine Progress Note for Dr. Jackson Patient seen and examined sitting by bedside, in no acute distress. Patient is clinically improved, medically stable for discharge. Awaiting home O2 setup by case management. 12 Pt ROS reviewed and negative. Objective - Vital Signs/Intake and Output Vital Signs (last 24 hours): Temp Pulse Resp BP Pulse Ox 98.0 F 75 20 150/77 95 11/16/18 08:00 11/16/18 08:00 11/16/18 08:00 11/16/18 08:00 11/16/18 08:00 Intake and Output: 11/16/18 11/16/18 06:59 18:59 Intake Total 810 Balance 810 - Medications Medications: Current Medications Acetaminophen (Tylenol 325mg Tab) 975 mg PO Q6 PRN PRN Reason: Fever >100.4 F Albuterol/Ipratropium (Duoneb 3 Mg/0.5 Mg (3 Ml) Ud) 3 ml INH RQ4 [facility] Last Admin: 11/16/18 11:50 Dose: 3 ml Alprazolam (Xanax) 0.25 mg PO BID PRN PRN Reason: Anxiety Stop: 11/18/18 19:30 Last Admin: 11/14/18 21:37 Dose: 0.25 mg Dabigatran (Pradaxa) 75 mg PO BID [facility] Last Admin: 11/16/18 09:53 Dose: 75 mg Doxycycline Hyclate (Doryx) 100 mg PO Q12H [facility]; Protocol Last Admin: 11/16/18 09:53 Dose: 100 mg Fluticasone/Vilanterol (Breo Ellipta 100-25 Mcg Inh) 1 puff INH RQD [facility] Last Admin: 11/16/18 07:50 Dose: 1 puff Lactobacillus Acidophilus (Lactobacillus) 1 cap PO BID [facility] Last Admin: 11/16/18 09:52 Dose: 1 cap Levothyroxine Sodium (Synthroid) 25 mcg PO DAILY@0630 [facility] Last Admin: 11/16/18 05:34 Dose: 25 mcg Losartan Potassium (Cozaar) 100 mg PO DAILY [facility] Last Admin: 11/16/18 09:52 Dose: 100 mg Pantoprazole Sodium (Protonix Ec Tab) 40 mg PO DAILY [facility] Last Admin: 11/16/18 09:51 Dose: 40 mg Prednisone (Prednisone Tab) 20 mg PO DAILY [facility] Last Admin: 11/16/18 09:52 Dose: 20 mg - Labs Labs: 11/16/18 06:46 11/16/18 06:46 PT 14.0 SECONDS (9.7-12.2) H 11/11/18 16:00 INR 1.3 11/11/18 16:00 APTT 72 SECONDS (21-34) H 11/11/18 16:00 - Constitutional Appears: Non-toxic, No Acute Distress - Head Exam Head Exam: ATRAUMATIC, NORMAL INSPECTION, NORMOCEPHALIC - Eye Exam Eye Exam: EOMI, Normal appearance Pupil Exam: NORMAL ACCOMODATION - ENT Exam ENT Exam: Mucous Membranes Moist, Normal Exam - Neck Exam Neck Exam: Full ROM, Normal Inspection. absent: Tenderness - Respiratory Exam Respiratory Exam: Decreased Breath Sounds, Clear to Ausculation Bilateral. absent: Accessory Muscle Use, Rhonchi, Wheezes, Respiratory Distress, Stridor - Cardiovascular Exam Cardiovascular Exam: REGULAR RHYTHM, +S1, +S2 - GI/Abdominal Exam GI & Abdominal Exam: Soft, Normal Bowel Sounds. absent: Distended, Firm, Guarding, Tenderness - Extremities Exam Extremities Exam: Full ROM, Normal Capillary Refill, Normal Inspection Additional comments: Right lower extremity: diminished erythema, minimal TTP Bilateral lower extremity pulses intact. normal coloration. No motor or sensory deficits noted bilaterally. - Neurological Exam Neurological Exam: Alert, Awake, Oriented x3 - Psychiatric Exam Psychiatric exam: Normal Affect, Normal Mood - Skin Skin Exam: Dry, Warm Additional comments: findings as above Assessment and Plan - Assessment and Plan (Free Text) Assessment: 87 year old F with history of Atrial fibrillation (on pradaxa), HTN, COPD, anxiety, depression presenting with RLE wound, likely cellulitis, secon arsitides to trauma 1 week ago. Plan: Right lower extremity cellulitis -Received vanc/zosyn x 1 in ED -patient is afebrile, no leukocytosis -LE Dopplers negative for DVT -D dimer negative -CXR: no acute findings -Right tib/fib XR negative -CT RLE: likely cellulitis, no fluid collection visualized -Wound care nursing recs appreciated: recommending to dissolve boggy scabs using medihoney, then covering with thick foam dressing to be changed every other day. -Doxycycline 100mg Q12 -BCx, Urine Cx: no growth History of COPD -Untreated at home -No home medications except for inhaler occasionally -Duonebs Q4 -Breo elipta 1 puff QD -prednisone 20 mg PO daily Atrial fibrillation -EKG: a fib, HR 66 bpm -Continue home pradaxa 75 mg PO BID Hx of HTN -Currently normotensive, continue to monitor -Continue home losartan 100 mg PO daily Hx of hypothyroidism -Restart home synthroid 25 mcg po daily Anxiety, Depression -Continue home xanax 0.25 mg PO BID prn PPx, Diet, Disposition -DVT ppx: home pradaxa -GI ppx: protonix 40 mg IV daily -Diet: HHD -PT/OT on board -Dispo: awaiting home O2 setup. Case discussed with Dr. Renetta Monroy DO, PGY-1
[2018-11-16 15:58] VITALS: BP 159/80; PULSE 86; TEMP 98.5; O2SAT 94
== END 2018-11-16 18:39 | disposition home or self-care (01) | DRG 603 ==
LOC: C.ER 15:06 → C.9E 17:51 → C.3T 18:02 → OBSVTOIN 11-14 08:30
PROVIDERS: ADMIT Internal Medicine; ATTEND Internal Medicine
DX: L03.115 Cellulitis of right lower limb (principal); I10 Essential (primary) hypertension; E03.9 Hypothyroidism, unspecified; F41.9 Anxiety disorder, unspecified; I48.91 Unspecified atrial fibrillation; J44.9 Chronic obstructive pulmonary disease, unspecified; K21.9 Gastro-esophageal reflux disease without esophagitis; W22.8XXA Striking against or struck by other objects, initial encounter; Z87.440 Personal history of urinary (tract) infections; Z87.891 Personal history of nicotine dependence; Z90.49 Acquired absence of other specified parts of digestive tract; Z99.81 Dependence on supplemental oxygen